=== PATIENT | male | born 1960 | race Caucasian/White ===

== ENCOUNTER 2021-05-31 20:09 | Inpatient (IN) | payer MEDICAID, SELFPAY ==
[2021-05-31] VITALS (18 sets, daily range): BP systolic 82–189; BP diastolic 59–138; PULSE 87–126; RESP 15–36; TEMP 35.9; O2SAT 87–99; BMI 27.1
--- NOTE | 2021-05-31 20:11 | XRR_ITS ---
PROCEDURE INFORMATION: Exam: XR Chest Exam date and time: 05/31/2021 8:11 PM Age: 61 years old Clinical indication: Dyspnea; Additional info: SOB TECHNIQUE: Imaging protocol: XR of the chest. Views: 1 view. COMPARISON: No relevant prior studies available. FINDINGS: Lungs: There are peripheral hazy opacities in the right lower lobe and in the left mid lung. Pleural spaces: Bilateral pleural thickening. Heart/Mediastinum: The heart size is normal. Bones/joints: Unremarkable. XR/XR chest 1V portable [id number] IMPRESSION: Bilateral lower lobe hazy lung opacities. Chronicity is uncertain but could indicate pneumonitis as well as chronic findings such as pleural thickening or scarring
--- NOTE | 2021-05-31 20:12 | ECG_ITS ---
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 Measurements Intervals [place] Rate: 126 P: 71 MI: 169 QRS: -25 QRSD: 93 T: 73 QT: 304 QTc: 440 Interpretive Statements SINUS TACHYCARDIA WITH OCCASIONAL ECTOPIC PREMATURE COMPLEXES SEPTAL MYOCARDIAL INFARCTION , PROBABLY OLD [40+ ms Q WAVE IN V1/V2] No previous ECG available for comparison Electronically Signed On 06-01-2021 12:06:54 CORRECTIONAL OFFICER CHIEF by Carolyn Caraballo M.D. [email or web address]
[2021-05-31 20:35] LABS: Basophils # 0.2 10^3/uL (0.0-0.1); Basophils % 1.1 %; Eosinophils # 1.5 10^3/uL (0.0-0.8); Eosinophils % 9.7 %; Hematocrit 47.6 % (42.0-52.0); Hemoglobin 15.5 g/dL (11.7-16.6); Lymphocytes # 2.8 10^3/uL (0.8-4.8); Lymphocytes % 17.7 %; Mean Corpuscular HGB Conc 32.6 g/dL (30.0-36.0); Mean Corpuscular Volume 101.3 fl (80-94); Mean Platelet Volume 11.1 fL (7.4-10.4); Monocytes # 1.2 10^3/uL (0.2-0.9); Monocytes % 7.8 %; Neutrophils # 9.85 10^3/uL (1.8-7.7); Neutrophils % 62.8 %; Nucleated Red Blood Cells % 0 %; Platelet Count 240 10^3/cmm (130-400); Red Cell Distribution Width 12.9 % (12.1-15.1); White Blood Count 15.7 10^3/uL (4.0-10.0)
[2021-05-31] MEDS: ipratropium-albuterol 3 mL Neb INHALATION (20:36)
[2021-05-31 20:41] LABS: D Dimer 0.37 ug/mIFEU (0-0.59)
[2021-05-31 20:47] LABS: Lactic Sepsis W/Reflex 0.7 mmol/L (0.5-2.2)
[2021-05-31 20:50] LABS: Troponin(5th) Baseline 6 ng/L (0-15)
[2021-05-31 20:57] LABS: NT Pro B Type Natriuretic Pept 61 pg/mL (0-125); Procalcitonin 0.05 ng/mL (0-0.5)
[2021-05-31 20:57] LABS: Influenza A by IFA Negative (Negative); Influenza B by IFA Negative (Negative)
--- NOTE | 2021-05-31 21:05 | CTR_ITS ---
PROCEDURE INFORMATION: Exam: CT Head Without Contrast Exam date and time: 05/31/2021 9:05 PM Age: 61 years old Clinical indication: Altered mental status/memory loss; Confusion or disorientation; Patient HX: Ams/confusion TECHNIQUE: Imaging protocol: Computed tomography of the head without contrast. Radiation optimization: All CT scans at this facility use at least one of these dose optimization techniques: automated exposure control; mA and/or kV adjustment per patient size (includes targeted exams where dose is matched to clinical indication); or iterative reconstruction. COMPARISON: No relevant prior studies available. RADIATION DOSE METRICS: Total DLP (mGy-cm): 904.45 FINDINGS: Brain: No CT evidence for acute ischemia, mass or hemorrhage. Cerebral ventricles: No ventriculomegaly. Paranasal sinuses: There is scattered mucosal thickening in the paranasal sinuses without fluid levels. Mastoid air cells: Visualized mastoid air cells are well aerated. Bones/joints: Unremarkable. No acute fracture. Soft tissues: Unremarkable. CT/CT head wo con* [id number] IMPRESSION: No acute intracranial findings
[2021-05-31 21:08] LABS: Albumin Level 4.2 g/dL (3.5-5.2); Alkaline Phosphatase 83 IU/L (40-130); Blood Urea Nitrogen 10 mg/dL (8-23); Calcium 9.1 mg/dL (8.5-10.5); Carbon Dioxide 24 mmol/L (22-29); Chloride 99 mmol/L (98-107); Globulin 3.2 g/dL (1.3-4.6); Glomerular Filtration Rate 137.4 mL/min (90-130); Glucose 213 mg/dL (65-115); Magnesium 2.2 mg/dL (1.7-2.3); Osmolality Calculated 289 mOsm/kg (285-295); Sodium 137 mmol/L (136-145); Total Bilirubin 0.4 mg/dL (0.15-1.2); Total Protein 7.4 g/dL (6.6-8.7)
[2021-05-31 21:19] LABS: Creatinine Clr Calc Pharmacy 149.1859
[2021-05-31 21:21] LABS: Alanine Aminotransferase 15 U/L (0-41); Aspartate Amino Transferase 31 U/L (0-40)
[2021-05-31 22:19] LABS: Adenovirus Not Detected (NOT DETECT); Chlamydia Pneumoniae Not Detected (NOT DETECT); Coronavirus 229E,HKU1,NL63,OC4 Not Detected (NOT DETECT); Human Metapneumovirus Not Detected (NOT DETECT); Human Rhinovirus/Enterovirus Not Detected (NOT DETECT); Influenza A Not Detected (NOT DETECT); Influenza A H1 Not Detected (NOT DETECT); Influenza A H1-2009 Not Detected (NOT DETECT); Influenza A H3 Not Detected (NOT DETECT); Influenza B Not Detected (NOT DETECT); Mycoplasma Pneumoniae Not Detected (NOT DETECT); Parainfluenza Virus Type 1 Not Detected (NOT DETECT); Parainfluenza Virus Type 2 Not Detected (NOT DETECT); Parainfluenza Virus Type 3 Not Detected (NOT DETECT); Parainfluenza Virus Type 4 Not Detected (NOT DETECT); Respiratory Syncytial Virus A Not Detected (NOT DETECT); Respiratory Syncytial Virus B Not Detected (NOT DETECT); SARS-COV-2 Not Detected (NOT DETECT)
[2021-05-31] MEDS: piperacillin-tazobactam 4.5 GM in sodium chloride 0.9% (plus) 50 ML IV (22:27)
[2021-05-31] MEDS: sodium chloride 0.9% 1,000 ML 999 ML IV ×2 (22:28→23:18)
[2021-05-31] MEDS: vancomycin 1,500 MG/300 ML PIGGYBACK 200 MG IV (23:16)
[2021-05-31 23:22] LABS: ABG PCO2 46.5 mmHg (35-45); ABG PH Result 7.38 (7.35-7.45); Arterial Blood Gas Hematocrit 43.9 % (42-52); Base Excess ABG 1.4 mmol/L (-2.0-2.0); Blood Gas Allen Test Pos; Blood Gas Sample Site Radial, right; Blood Gas Sample Type Arterial; HCO3 ABG 27.2 mmol/L (22-26); Oxygen Device BIPAP
[2021-05-31 23:24] LABS: Troponin 5 2HR 123.9 ng/L (0-15); Troponin 5 2HR Delta 117.9 ABS# (0-10)
--- NOTE | 2021-05-31 23:30 | W.ED.SOB ---
HPI - SOB/Dyspnea General: Chief Complaint: Shortness of Breath/Dyspnea Stated Complaint: RESP. DISTRESS Time Seen by Provider: 05/31/21 20:10 Source: patient and EMS History of Present Illness: HPI Narrative: 61-year-old male who called EMS with shortness of breath this evening. Patient became unresponsive on transport to the hospital. He was having trouble breathing prior. History is not reliable from patient as to prior events. He denies significant chest pain or cough. He does have a history of COPD. MD elicited complaint: shortness of breath Pertinent past history: COPD Onset (ago): hour(s) Context: other Timing: constant and progressively worsening Severity: severe Exacerbating factors: other Relieving factors: nothing Known history of: COPD Associated symptoms: Reports cough; Deny chest pain, fever(s) or vomiting Review of Systems General: Reports: ROS unobtainable due to mental status Const: Denies: fever(s) Card: Denies: chest pain GI: Denies: vomiting PFSH ED PFSH: Social History Smoking and tobacco status: former smoker Quit status (tobacco): has quit using tobacco Year quit tobacco: 2006 Former quit date comment: 2ppd x 35 years Physical Exam Const: GENERAL APPEARANCE: in distress, lethargic and ill appearing ORIENTATION/CONSCIOUSNESS: Yes lethargic HENMT: COMMON NORMALS: normocephalic, atraumatic and Normal external nose present HEAD & SCALP: normocephalic and atraumatic FACE & SINUS: normal facial exam and face symmetric NOSE: Normal external nose present Eye: COMMON NORMALS: Equal, round and reactive pupils present and EOMs intact bilaterally PUPIL: Yes Equal, round and reactive pupils present Chest: COMMONS NORMALS: normal inspection of the chest Resp: EFFORT & INSPECTION: Yes respiratory distress, Yes labored, Yes retractions and Yes uses accessory muscles AUSCULTATION: rhonchi and wheezes Cardio: COMMON NORMALS: regular rhythm RATE: tachycardic RHYTHM: regular rhythm GI: COMMON NORMALS: Normal to inspection, nondistended, normoactive bowel sounds present and Soft to palpation PALPATION: Yes Soft to palpation Extremity: COMMON NORMALS: no pedal edema Neuro: ISABEL COMA SCALE: document GCS findings [place] coma scale eye opening: To sound [place] coma scale verbal response: Confused Isabel coma scale motor response: Obey commands [place] coma scale total score: 13 SENSORIUM/ORIENTATION: Yes lethargic Course Consultations: Consultation #1: dany Time: 00:05 Vital Signs: Vital signs: Vital Signs Temperature 96.7 F L 05/31/21 20:13 Pulse Rate 89 05/31/21 22:30 Respiratory Rate 15 05/31/21 22:30 Blood Pressure 112/76 05/31/21 22:30 Pulse Oximetry 98 05/31/21 22:30 MDM - SOB/Dyspnea Medical Decision Making 61-year-old male, presents lethargic, significantly hypoxic, with wheezes. Assumed he is hypercapnic as well. He is answering some questions. He is able to follow commands. BiPAP placed on arrival. Initial pH was 7.2 with a high PCO2. Blood gas 2.5 to 3 hours later shows a pH of 7.37. His mental status has improved. CT of the head shows nothing acute. White blood cell count is 15.7. Bilateral infiltrates on chest x-ray. COVID-19 is negative by PCR. He is given a 2 L bolus, for mild transient hypotension, but is now nontachycardic and with a normal blood pressure of 118/73. The patient's mean arterial pressure never dropped below 65. He is started on Zosyn and vancomycin in the ER. Patient's delta significant over 100. Likely from hypoxic respiratory failure and ischemic demand. Nevertheless, patient is given Plavix and enoxaparin. He has a naproxen allergy, so aspirin was held. Spoke with hospitalist he will admit. Lab Data : 05/31/21 20:04 05/31/21 20:04 Labs/Radiology: Radiology Impressions Chest X-Ray 05/31/21 20:11 IMPRESSION: Bilateral lower lobe hazy lung opacities. Chronicity is uncertain but could indicate pneumonitis as well as chronic findings such as pleural thickening or scarring Head CT 05/31/21 21:05 IMPRESSION: No acute intracranial findings Laboratory Results WBC 15.7 10^3/uL (4.0-10.0) H 05/31/21 20:04 RBC 4.70 10^6/uL (4.1-5.3) 05/31/21 20:04 Hgb 15.5 g/dL (11.7-16.6) 05/31/21 20:04 Hct 47.6 % (42.0-52.0) 05/31/21 20:04 MCV 101.3 fl (80-94) H 05/31/21 20:04 MCH 33.0 pg (28.0-34.0) 05/31/21 20:04 MCHC 32.6 g/dL (30.0-36.0) 05/31/21 20:04 RDW 12.9 % (12.1-15.1) 05/31/21 20:04 Plt Count 240 10^3/cmm (130-400) 05/31/21 20:04 MPV 11.1 fL (7.4-10.4) H 05/31/21 20:04 Neut % (Auto) 62.8 % 05/31/21 20:04 Lymph % (Auto) 17.7 % 05/31/21 20:04 [place] % (Auto) 7.8 % 05/31/21 20:04 Eos % (Auto) 9.7 % 05/31/21 20:04 Baso % (Auto) 1.1 % 05/31/21 20:04 Neut # (Auto) 9.85 10^3/uL (1.8-7.7) H 05/31/21 20:04 Lymph # (Auto) 2.8 10^3/uL (0.8-4.8) 05/31/21 20:04 [place] # (Auto) 1.2 10^3/uL (0.2-0.9) H 05/31/21 20:04 Eos # (Auto) 1.5 10^3/uL (0.0-0.8) H 05/31/21 20:04 Baso # (Auto) 0.2 10^3/uL (0.0-0.1) H 05/31/21 20:04 Nucleated RBC % (auto) 0 % 05/31/21 20:04 Nucleated RBCs # 0.0 /100WBC 05/31/21 20:04 D-Dimer 0.37 ug/mIFEU (0-0.59) 05/31/21 20:04 Specimen Type Arterial 05/31/21 23:02 Sample Site Radial, right 05/31/21 23:02 ABG pH 7.38 (7.35-7.45) 05/31/21 23:02 ABG pCO2 46.5 mmHg (35-45) H 05/31/21 23:02 ABG pO2 132.0 mmHg (80.0-100.0) H 05/31/21 23:02 ABG HCO3 27.2 mmol/L (22-26) H 05/31/21 23:02 ABG Base Excess 1.4 mmol/L (-2.0-2.0) 05/31/21 23:02 David Test Pos 05/31/21 23:02 Hematocrit 43.9 % (42-52) 05/31/21 23:02 O2 Delivery Device Bipap 05/31/21 23:02 FiO2 40.0 % 05/31/21 23:02 PEEP 6.0 cmH20 05/31/21 23:02 Correspondence Dictator ID Hensa 05/31/21 23:02 Sodium 137 mmol/L (136-145) 05/31/21 20:04 Potassium 5.0 mmol/L (3.5-5.1) 05/31/21 20:04 Chloride 99 mmol/L (98-107) 05/31/21 20:04 Carbon Dioxide 24 mmol/L (22-29) 05/31/21 20:04 Anion Gap 19.0 (5-19) 05/31/21 20:04 BUN 10 mg/dL (8-23) 05/31/21 20:04 Creatinine 0.6 mg/dL (0.7-1.2) L 05/31/21 20:04 GFR Calculation 137.4 mL/min (90-130) H 05/31/21 20:04 Glucose 213 mg/dL (65-115) H 05/31/21 20:04 Calculated Osmolality 289 mOsm/kg (285-295) 05/31/21 20:04 Lactic Acid 0.7 mmol/L (0.5-2.2) 05/31/21 20:04 Calcium 9.1 mg/dL (8.5-10.5) 05/31/21 20:04 Magnesium 2.2 mg/dL (1.7-2.3) 05/31/21 20:04 Total Bilirubin 0.4 mg/dL (0.15-1.2) 05/31/21 20:04 AST 31 U/L (0-40) 05/31/21 20:04 ALT 15 U/L (0-41) 05/31/21 20:04 Alkaline Phosphatase 83 IU/L (40-130) 05/31/21 20:04 Troponin T Baseline 6 ng/L (0-15) 05/31/21 20:04 Troponin T 120 Minute 123.9 ng/L (0-15) H 05/31/21 22:20 Delta Troponin T 117.9 ABS# (0-10) H* 05/31/21 22:20 C-Reactive Protein 9.0 mg/L (0.0-4.9) H 05/31/21 20:04 NT-Pro-B Natriuret Pep 61 pg/mL (0-125) 05/31/21 20:04 Total Protein 7.4 g/dL (6.6-8.7) 05/31/21 20:04 Albumin 4.2 g/dL (3.5-5.2) 05/31/21 20:04 Globulin 3.2 g/dL (1.3-4.6) 05/31/21 20:04 Procalcitonin 0.05 ng/mL (0-0.5) 05/31/21 20:04 Coronavirus 229E (PCR) Not detected (NOT DETECT) 05/31/21 20:24 Influenza Type A Ag Negative (Negative) 05/31/21 20:24 Influenza Type B Ag Negative (Negative) 05/31/21 20:24 SARS-CoV-2 (PCR) Not detected (NOT DETECT) 05/31/21 20:24 Critical Care Time Critical Care Time: Critical Care Time: Yes Total Critical Care Time: 40 Attestation: This case had a high probability of a clinically significant, sudden, or life threatening deterioration of this patient's condition which required my full and direct attention, intervention and personal management. This is independent of any procedures performed Discharge Plan Discharge Patient Disposition: Admitted As Inpatient Clinical Impression: Community acquired pneumonia, Non-STEMI (non-ST elevated myocardial infarction), Respiratory failure Condition: Serious Coding Level of Care Code ED Cardroom Plastic Card Grader for Clementina Fwanna Exam Comprehensive
[2021-06-01] VITALS (29 sets, daily range): BP systolic 98–133; BP diastolic 67–93; PULSE 15–106; RESP 14–88; TEMP 36.4–36.6; O2SAT 87–97; BMI 27.1
[2021-06-01] MEDS: enoxaparin 100 mg/mL Syringe 90 MG SUBCUT ×3 (00:19→18:18)
[2021-06-01] MEDS: clopidogrel 300 mg Tablet PO (00:19)
--- NOTE | 2021-06-01 00:27 | P.HP_ITS ---
Providers/Chief Complaint Admitting Physician: Meg Glaser DO Primary Care Provider: SKYLAR Shipman Chief Complaint: RESP. DISTRESS History of Present Illness The patient is a 7-year-old male who presents with chief complaint of one-week history of worsening dyspnea. I was notified by the emergency department physician that the patient actually presented to the emergency department obtunded. Aside from dyspnea, the patient admits to cough which is productive white sputum. He denies fever, rigors, nausea, vomiting, wheeze, abdominal pain, diarrhea, myalgia, chest pain, lightheaded, dizziness, diaphoresis, palpitations, sense of rapid heartbeat, sensation of irregular heartbeat. He denies peripheral edema. He denies a no dyspnea, dysgeusia, headache. Patient has known history of COPD for which she is O2 dependent 2 L. He present for further evaluation Review of Systems General: Reports: 10 or more systems reviewed and unremarkable except in HPI and below Medications/Allergies Home Medications Medication Instructions Recorded Confirmed Last Taken Type albuterol sulfate 2.5 mg/0.5 mL 2.5 mg INHALATION Q6H PRN ea 01/15/21 01/15/21 Unknown History solution for nebulization albuterol sulfate 90 mcg/actuation 1 inh INHALATION Q4H PRN g 01/15/21 01/15/21 Unknown History aerosol inhaler fluticasone 500 mcg-salmeterol 50 1 inh INHALATION BID 01/15/21 01/15/21 Unknown History mcg/dose blistr powdr for inhalation fluticasone fur. 100 mcg-umeclid 1 inh INHALATION DAILY #60 ea 01/15/21 01/15/21 Unknown Rx 62.5 mcg-vilant 25 mcg inhalat.powder (Trelegy Ellipta) montelukast 10 mg tablet 10 mg PO DAILY 01/15/21 01/15/21 Unknown History (Singulair) paroxetine HCl 40 mg tablet 40 mg PO DAILY 01/15/21 01/15/21 Unknown History Allergies Allergy/AdvReac Type Severity Reaction Status Date / Time naproxen Allergy Unknown Unknown Verified 01/15/21 10:14 PFSH Acute PFSH: Social History Smoking and tobacco status: former smoker Quit status (tobacco): has quit using tobacco Year quit tobacco: 2006 Former quit date comment: 2ppd x 35 years Vitals/I&O/Wt Last Vital Signs Temp 96.7 F L 05/31/21 20:13 Pulse 88 06/01/21 00:15 Resp 18 06/01/21 00:15 BP 111/74 06/01/21 00:15 Pulse Ox 87 L 06/01/21 00:15 05/31/21 05/31/21 06/01/21 14:59 22:59 06:59 Intake Total 1050 / 1050 Balance 1050 / 1050 Weight last 48 hrs Weight 88.451 kg Physical Exam Const: COMMON NORMALS: no acute distress, average body habitus, patient oriented x3, no limitations, healthy appearing, alert and well nourished HENMT: COMMON NORMALS: normocephalic, atraumatic, hearing grossly normal bilaterally, external ears normal, EAC's normal, TM's normal bilaterally, Normal external nose present, Normal nasal mucous membranes and turbinates present, moist oral mucous membranes, oropharynx normal, dentition normal and gingiva normal HEAD & SCALP: normal to inspection FACE & SINUS: normal facial exam NOSE: Normal external nose present EXTERNAL EAR: Yes external ears normal Eye: COMMON NORMALS: Equal, round and reactive pupils present, EOMs intact bilaterally, conjunctivae normal, no scleral icterus, no papilledema, normal visual griggs by confrontation and fundi normal bilaterally GENERAL EYE: appearance normal, both eyes and all related structures ALIGNMENT: Yes alignment normal EYELID: eyelids normal CONJUNCTIVA: Yes conjunctivae normal SCLERA: sclerae normal PUPIL: Yes Equal, round and reactive pupils present EOM: Yes EOM abnormal Neck/C-Spine: COMMON NORMALS: full ROM, no lymphadenopathy, supple, no meningeal signs, no JVD, Thyroid normal and No carotid bruits THYROID: Thyroid normal CERVICAL SPINE: Yes cervical ROM normal Lymph: LYMPHATIC: no lymphadenopathy noted Chest: COMMONS NORMALS: normal inspection of the chest, normal palpation of entire chest wall, normal inspection of the breasts and normal palpation of the breasts Resp: COMMON NORMALS: normal respiratory effort, No retractions, No use of accessory muscles, clear to auscultation bilaterally and percussion normal AUSCULTATION: clear to auscultation bilaterally Cardio: COMMON NORMALS: no JVD, regular rate, regular rhythm, S1 normal heart sound present, S2 normal heart sound present, No gallops present (Cardio), No clicks present (Cardio), No murmurs present (Cardio), No rub (Cardio) and Peripheral pulses 2+ throughout JUGULAR VENOUS DISTENTION: no JVD PALPATION: normal PMI RATE: regular rate RHYTHM: regular rhythm HEART SOUNDS: S1 normal heart sound present GI: COMMON NORMALS: Normal to inspection, nondistended, normoactive bowel sounds present, Soft to palpation, non-tender, No hepatosplenomegaly present, no masses and no bruits INSPECTION: Yes normal to inspection PERCUSSION: normal to percussion : COMMON NORMALS: Yes no CVA tenderness, Yes normal external exam, Yes Testes normal, Yes scrotum normal, Yes no scrotal swelling and Yes No hernias present Back/Pelvis: COMMON NORMALS: no CVA tenderness, thoracic and lumbar spine normal to inspection, no thoracic nor lumbar tenderness, thoraco-lumbar ROM normal and straight leg raise negative bilaterally Extremity: COMMON NORMALS: normal to inspection, full ROM, capillary refill normal, no joint enlargement, no clubbing, cyanosis or edema, no calf tenderness and no pedal edema GENERAL: Yes normal exam except as noted Neuro: COMMON NORMALS: patient oriented x3, CN's II-XII intact bilaterally, moves all extremities, no focal motor deficits, no sensory deficits noted, deep tendon reflexes 2+ bilaterally and gait normal CRANIAL NERVES: Yes CN normal except as noted MOTOR EXAM: 5/5 motor strength present throughout DEEP TENDON REFLEXES: Right triceps reflex intensity grade: 2+, Left triceps reflex intensity grade: 2+, Rt Biceps (C5, C6): 2+, Left biceps reflex intensity grade: 2+, Right brachioradialis reflex intensity grade: 2+, Left brachioradialis reflex intensity grade: 2+, Right patellar reflex intensity grade: 2+, Left patellar reflex intensity grade: 2+, Right ankle reflex intensity grade: 2+ and Left ankle reflex intensity grade: 2+ PUPIL EXAM: Normal pupillary reactivity/response: bilateral, Dilated: bilateral, Pinpoint: bilateral, Mid position: bilateral, Sluggish: bilateral and Fixed/non-reactive: bilateral Psych: COMMON NORMALS: mental status grossly normal, Normal thought process present, cooperative, normal affect, speech normal, activity/motor behavior normal, denies hallucinations, denies homicidal ideation and denies suicidal ideation Skin: COMMON NORMALS: no rashes or lesions noted, no wounds, turgor normal, no jaundice, no petechiae and no mottling LESIONS: no lesions Data : 05/31/21 20:04 05/31/21 20:04 Micro: Microbiology 05/31/21 20:24 Blood Culture - Preliminary Blood SPECIMEN COLLECTED 05/31/21 20:04 Blood Culture - Preliminary Blood SPECIMEN COLLECTED A&P Assessment and plan (1) Community acquired pneumonia: Status: Acute Plan COPD exacerbation. Patient typically O2 dependent 2 L. DuoNeb every 4 hours + Medrol 6 mg IV every hours plus singular 10 Mill grams by mouth daily Pneumonia. Blood culture ?2 pending. Is at the mycin 500 Mill grams IV daily plus Rocephin 1 g IV daily plus DuoNeb every 4 hours. Will attempt to wean the patient off of BiPAP Marijuana abuse. The patient becomes regarding marijuana cessation Elevated troponin, query and STEMI. Likely due to cardiac strain from hypoxemia. Will monitor patient on telemetry and checks her cardiac enzymes. Recheck EKG at 6 AM on June 01, 2021. Aspirin 81 Mill grams by mouth daily plus Nitropaste 1/2 inch every 6 hours plus metoprolol 12.5 Mill grams by mouth twice a day plus Lipitor 40 Mill grams by mouth daily at bedtime plus Lovenox 90 Mill grams subcutaneous leak every 12 hours. If we do not see a plateau, we may consider further cardiac testing including echocardiogram and Lexiscan especially given his history of coronary artery disease, status post [place] Psoriatic arthritis Anxiety Macrocytosis. Currently pending: TSH, free T4, B12, folate levels Depression Coronary artery disease, status post WI. Aspirin 81 Mill grams by mouth daily plus Lipitor 40 Mill grams by mouth daily at bedtime plus metoprolol 12.5 Mill grams by mouth twice a day GI prophylaxis. Protonix 40 Mill grams by mouth daily DVT Proflex is. Lovenox 90 Mill grams subcu tensely every 12 hours Attestations Medical Necessity Statement*: The patient's hospitalization is medically necessary as witnessed by performance of this H&P. Anticipate hospitalization greater than 48 hours Coding Level of Care Code Acute Supervisor Continuous Weld Pipe Mill for Clementina Tim Diagnoses Community acquired pneumonia J18.9
[2021-06-01 01:25] LABS: Thyroid Stimulating Hormone 2.17 uIU/mL (0.27-4.20); Vitamin B12 467 pg/mL (232-1245)
[2021-06-01] MEDS: nitroglycerin 1 gm/inch oint Pkt 0.5 INCH TOPICAL ×2 (01:32→05:57)
[2021-06-01] MEDS: cefTRIAXone 1,000 MG in sodium chloride 0.9% (plus) 50 ML 100 MG IV ×2 (01:33→23:45)
[2021-06-01] MEDS: azithromycin 500 MG in sodium chloride 0.9% 250 ML 250 MG IV ×2 (01:33→22:48)
--- NOTE | 2021-06-01 01:38 | PC.NURSE ---
Admit Note Patient admitted to CSU room 102 from ED via stretcher. Covering service notified. Patient presents with increased work of breathing, pneumonia, NSTEMI. Patient has bipap in place. Patient denies pain at this time. No other distress observed. Dr Glaser has placed orders. Medications administered as ordered and documented. Orders reviewed & will continue to monitor. Patient and/or national account representative oriented to environment, equipment, and informed of the following as found in the admission booklet: patient rights & responsibilities, visitor policy, hand and respiratory hygiene practice. Other education includes: Zithromax, Rocephin and Solumedrol. Patient verbalized understanding however will require reinforcement when more awake.
--- NOTE | 2021-06-01 02:12 | ECG_ITS ---
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 Measurements Intervals [place] Rate: 91 P: 69 NE: 179 QRS: 21 QRSD: 88 T: 57 QT: 368 QTc: 455 Interpretive Statements SINUS RHYTHM LEFT ATRIAL ENLARGEMENT [-0.15mV P-WAVE IN V1/V2] SEPTAL MYOCARDIAL INFARCTION , PROBABLY OLD [40+ ms Q WAVE IN V1/V2] Compared to ECG 05/31/2021 20:04:30 Atrial abnormality now present Sinus tachycardia no longer present Myocardial infarct finding still present Electronically Signed On 06-01-2021 12:16:29 SUPERVISOR MONEY ROOM by Carolyn Caraballo M.D. [email or web address]
[2021-06-01 02:58] LABS: Free T4 Free Thyroxine 1.35 ng/dL (0.82-1.77)
[2021-06-01 03:35] LABS: Basophils % 0.2 %; Eosinophils % 0.1 %; Hematocrit 40.8 % (42.0-52.0); Hemoglobin 13.4 g/dL (11.7-16.6); Lymphocytes # 0.4 10^3/uL (0.8-4.8); Mean Corpuscular HGB Conc 32.8 g/dL (30.0-36.0); Mean Corpuscular Volume 100.5 fl (80-94); Mean Platelet Volume 9.9 fL (7.4-10.4); Monocytes # 0.1 10^3/uL (0.2-0.9); Monocytes % 0.7 %; Neutrophils # 8.42 10^3/uL (1.8-7.7); Neutrophils % 94.3 %; Nucleated Red Blood Cells % 0 %; Platelet Count 210 10^3/cmm (130-400); Red Blood Count 4.06 10^6/uL (4.1-5.3); Red Cell Distribution Width 12.9 % (12.1-15.1); White Blood Count 8.9 10^3/uL (4.0-10.0)
[2021-06-01] MEDS: ipratropium-albuterol 3 mL Neb INHALATION ×5 (04:14→23:14)
[2021-06-01 04:42] LABS: Troponin 5 6HR 121.5 ng/L (0-15); Troponin 5 6HR Delta 115.5 ng/L (0-12)
--- NOTE | 2021-06-01 06:00 | ECG_ITS ---
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 Measurements Intervals [place] Rate: 80 P: 65 W[place]: 170 QRS: 36 QRSD: 86 T: 56 QT: 385 QTc: 445 Interpretive Statements SINUS RHYTHM POSSIBLE LEFT ATRIAL ENLARGEMENT [-0.1mV P-WAVE IN V1/V2] SEPTAL MYOCARDIAL INFARCTION , PROBABLY OLD [40+ ms Q WAVE IN V1/V2] Compared to ECG 06/01/2021 02:45:34 No significant changes Electronically Signed On 06-01-2021 12:15:08 ASSISTANT ASSOCIATE PROFESSOR by Carolyn Caraballo M.D. [id number]
--- NOTE | 2021-06-01 06:11 | PC.NURSE ---
Shift Note Frequent safety and comfort rounds continue. Orders and/or nursing care completed as indicated. Patient monitored for response to intervention and treatment(s). Education provided includes Zithromax, Rocephine and NTP. Patient verbalized understanding. Patient reports feeling some better. Bipap remains in place at this time. Denies pain or needs presently. No distress observed. Will continue to monitor.
--- NOTE | 2021-06-01 08:45 | USCV_ITS ---
MelissaChris oscar Age: 61 Gender: M : 1960 Exam Date: 06/01/2021 09:43 Ordering Phys: Ramírez Covington MD Technologist: Nadege Buckner Exam Location: [facility] [place] Indication: SOB BP: 120 / 76 HR: 91 Rhythm: Sinus Technical Quality: Adequate MEASUREMENTS (Male / Female) Normal Values 2D ECHO LV Diastolic Diameter PLAX 4.3 cm 4.2 - 5.9 / 3.9 - 5.3 cm LV Systolic Diameter PLAX 2.6 cm LV Chamber Size 4.0 cm IVS Diastolic Thickness 1.6 cm 0.6 - 1.0 / 0.6 - 0.9 cm IVS Systolic Thickness 1.4 cm LVPW Diastolic Thickness 1.5 cm 0.6 - 1.0 / 0.6 - 0.9 cm LVPW Systolic Thickness 1.9 cm RV Chamber Size 3.6 cm LVOT Diameter 2.1 cm LV Ejection Fraction 2D Teich 71.0 % LV Ejection Fraction MOD 2C 54.1 % LV Ejection Fraction 2C AL 57.2 % LA Diameter 3.0 cm LA Width 2.3 cm LA Height 3.8 cm RA Width 4.2 cm RA Height 4.3 cm Aorta at Sinotubular Diameter 2.6 cm M-MODE Aortic Annulus Diameter 3.4 cm LA Ao Ratio MM 1.0 MV E Point Septal Separation 0.4 cm DOPPLER AV Peak Velocity 219.8 cm/s LVOT Peak Velocity 117.3 cm/s AV Area Cont Eq vti 2.1 cm squared AV Area Cont Eq pk 1.8 cm squared MV Area PHT 4.4 cm squared Mitral E to A Ratio 0.8 MV E' Velocity 46.5 cm/s Mitral E to MV E' Ratio 12.4 Mitral E to LV E' Lateral Ratio 12.1 Mitral E to LV E' Septal Ratio 13.0 TR Peak Velocity 142.7 cm/s TR Peak Gradient 8.1 mmHg TR Mean Velocity 91.9 cm/s TR Mean Gradient 4.0 mmHg TR Velocity Time Integral 28.0 cm TV Peak E Velocity 58.0 cm/s Right Atrial Pressure 3.0 mmHg Pulmonary Artery Systolic Pressu 11.1 mmHg PV Peak Velocity 127.0 cm/s RV Acceleration Time 0.1 s RV Ejection Time 0.3 s RV AcT/ET 0.4 FINDINGS Left Ventricle Normal left ventricular size, systolic function with no regional wall motion abnormalities. Left ventricular ejection fraction is estimated at 65 %. Grade I diastolic dysfunction (abnormal relaxation filling pattern), normal to mildly elevated filling pressures. Right Ventricle Normal right ventricular size and systolic function. Right ventricular systolic pressure 11.1 mmHg. Right Atrium Normal right atrial size. Right atrial pressure estimated at 3 mm Hg. Left Atrium Normal left atrial size. Mitral Valve Mildly thickened mitral valve. No mitral valve stenosis. Trace mitral valve regurgitation. Aortic Valve Aortic valve not well visualized. Thickened and calcified aortic valve (more pronounced in noncoronary cusp). Sclerotic aortic valve. No significant aortic valve stenosis. No aortic valve regurgitation. Tricuspid Valve Structurally normal tricuspid valve. No tricuspid valve stenosis. Trace tricuspid valve regurgitation. Pulmonic Valve Pulmonic valve not well visualized. No pulmonary valve stenosis. No significant pulmonary valve regurgitation. Pericardium No pericardial effusion. Aorta Normal size aortic root. Normal-sized inferior vena cava with normal respiratory variation. CONCLUSIONS 1. Normal left ventricular size, systolic function with no regional wall motion abnormalities. Left ventricular ejection fraction is estimated at 65 %. Grade I diastolic dysfunction (abnormal relaxation filling pattern), normal to mildly elevated filling pressures. 2. Normal right ventricular size and systolic function. 3. Sclerotic aortic valve. No significant aortic valve stenosis. 4. No prior similar studies to compare. Carolyn Caraballo MD (Electronically Signed) Final Date: 01 June 2021 12:44 S
--- NOTE | 2021-06-01 08:48 | PM.PN ---
Subjective Subjective: Patient was seen and examined this morning, complaining of worsening shortness of breath since Wednesday With nonproductive cough, has remained afebrile overnight, saturating well on room air. His other vitals and labs have been reviewed. Medications: Medication Review Details: Generic Name Dose Route Start Last Admin Trade Name Mira PRN Reason Stop Dose Admin Albuterol/Ipratrop ium 3 ml 06/01/21 04:00 06/01/21 07:27 Ipratropium-Albu terol 3 Ml Neb INHALATION 3 ml Q4H.RESPIRATORY S CH Administration Azithromycin 500 m g/ Sodium 250 mls @ 250 mls /hr 06/01/21 00:33 06/01/21 02:33 Chloride IV Infused Q24H MARTY Infusion Protocol Ceftriaxone Sodium 1,000 mg/ 50 mls @ 100 mls/ hr 06/01/21 00:33 06/01/21 01:59 Sodium Chloride IV Infused Q24H MARTY Infusion Protocol Methylprednisolone Sodium Succinate 60 mg 06/01/21 00:33 06/01/21 01:33 Methylprednisolo ne Sod Succ 125 Mg /2 Ml Inj IVP 60 mg Q8H MARTY Administration Nitroglycerin 0.5 inch 06/01/21 00:33 06/01/21 05:57 Nitroglycerin 1 Gm/Inch Oint Pkt TOPICAL 0.5 inch Q6H MARTY Administration Vitals/I&O/Wt Last Vital Signs Temp 96.7 F L 05/31/21 20:13 Pulse 103 H 06/01/21 07:40 Resp 16 06/01/21 07:40 BP 120/76 06/01/21 04:19 Pulse Ox 97 06/01/21 07:40 05/31/21 06/01/21 06/01/21 22:59 06:59 14:59 Intake Total 2650 / 2650 218 / 218 Output Total 300 / 300 400 / 400 Balance 2350 / 2350 -182 / -182 Weight last 48 hrs Weight 88.042 kg Weight 88.451 kg Physical Exam Const: COMMON NORMALS: patient oriented x3 HENMT: COMMON NORMALS: normocephalic and atraumatic HEAD & SCALP: normocephalic and atraumatic Chest: CHEST: Yes Symmetrical chest wall rise Resp: COMMON NORMALS: normal respiratory effort EFFORT & INSPECTION: Yes symmetric chest movement Cardio: COMMON NORMALS: regular rate, regular rhythm, S1 normal heart sound present, S2 normal heart sound present, No gallops present (Cardio), No murmurs present (Cardio), No rub (Cardio) and Peripheral pulses 2+ throughout RATE: regular rate RHYTHM: regular rhythm HEART SOUNDS: S1 normal heart sound present and S2 normal heart sound present PERIPHERAL PULSES: Peripheral pulses 2+ throughout GI: COMMON NORMALS: Normal to inspection, nondistended, normoactive bowel sounds present, Soft to palpation, non-tender, No hepatosplenomegaly present and no masses AUSCULTATION: Yes normoactive bowel sounds PALPATION: Yes Soft to palpation and Yes No hepatosplenomegaly present RECTAL EXAM: Yes deferred Extremity: COMMON NORMALS: no clubbing, cyanosis or edema and no pedal edema Neuro: COMMON NORMALS: patient oriented x3 Data : 06/01/21 02:40 05/31/21 20:04 Micro: Microbiology 05/31/21 20:24 Blood Culture - Preliminary Blood SPECIMEN COLLECTED 05/31/21 20:04 Blood Culture - Preliminary Blood SPECIMEN COLLECTED A&P Assessment and plan (1) Community acquired pneumonia: Status: Acute Plan 61-year-old male with past medical history of COPD on 2 L home oxygen, past smoker smoked 2 pack/day for 35 years, quit smoking IN 2006, current tobacco chewer , was brought in with chief complaint of worsening shortness of breath With nonproductive cough, started this Wednesday and has since then progressively worsened, Patient has recently been treated for pneumonia as an outpatient on oral antibiotics, post treatment he was doing fine since Wednesday he again started having shortness of breath which has progressively worsened. #NSTEMI cannot conclusively rule out type I, Given the fact that the patient is a former smoker Could be possible type II, secondary to pneumonia /COPD exacerbation . 2D echo: Normal LV size and systolic function, with no RWMA , LVEF 65%, grade 1 diastolic dysfunction Normal RV size and systolic function. EKG: SR , with possible left atrial enlargement D-dimer 0.37 Currently patient is on aspirin , statin, therapeutic anticoagulation , low-dose beta-amanda. Sublingual nitro as needed. Cardiology consult. For Possible stress test COPD exacerbation. Admission ABG: pH 7.38 PCO2 46 PO2 132 FiO2 40%:40% Monitor x-ray chest And ABG Solu-Medrol 60 IV twice daily DuoNeb every 4 hours Incentive spirometry , flutter valve Supplemental oxygen as needed Pneumonia. Procalcitonin: Normal Follow blood culture. Urine Legionella antigen Bacterial antigen panel Sputum Gram stain and culture Currently on ceftriaxone and azithromycin Marijuana abuse. The patient becomes regarding marijuana cessation Psoriatic arthritis GI prophylaxis. Protonix DVT Proflex is. Lovenox Attestations Medical Necessity Statement*: Patient is still in hospital for management of NSTEMI. Time Spent in Patient Care: Greater than 35 minutes (>than 50% of time spent in counselling and/or direct pt care on unit). 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
[2021-06-01] MEDS: aspirin 81 mg EC Tablet PO (09:35)
[2021-06-01] MEDS: pantoprazole DR 40 mg Tablet PO (09:35)
[2021-06-01] MEDS: montelukast sodium 10 mg Tablet PO (09:42)
[2021-06-01] MEDS: metoprolol tartrate 25 mg Tablet 12.5 MG PO ×2 (09:43→19:39)
[2021-06-01 11:37] LABS: Folate Level 12.6 ng/mL (4.5-32.2)
--- NOTE | 2021-06-01 12:51 | PM.CONSULT ---
Providers/Reason For Consult Consulting Physician/Specialty*: Dr. Caraballo, cardiology Reason for Consult*: Shortness of breath, elevated troponin Attending Physician: Ramírez Covington MD Primary Care Provider: SKYLAR Shipman History of Present Illness History of Present Illness Chris Torres is a 61 year old male who is former heavy smoker, current tobacco chewer [facility] He presented with SOB progressively worsening for 1 day. No chest pain. He was hospitalized last week at different hospital for PNA. No ischemic EKG changes and troponin elevated on 2nd and 3rd set. No personal h/o CAD, DM-2. Review of Systems General: Reports: 10 or more systems reviewed and unremarkable except in HPI and below Const: Denies: fever(s) or chills Card: Denies: chest pain, syncope or pre-syncope GI: Denies: abdominal pain, hematochezia or melena Musc: Denies: extremity swelling Neuro: Denies: difficulty walking or dizziness Endo: Denies: tired all the time or cold intolerance Medications/Allergies Home Medications Medication Instructions Recorded Confirmed Last Taken Type albuterol sulfate 90 mcg/actuation 1 inh INHALATION Q4H PRN g 01/15/21 06/01/21 05/31/21 History aerosol inhaler fluticasone fur. 100 mcg-umeclid 1 inh INHALATION DAILY #60 ea 01/15/21 06/01/21 05/31/21 Rx 62.5 mcg-vilant 25 mcg inhalat.powder (Trelegy Ellipta) montelukast 10 mg tablet 10 mg PO DAILY 01/15/21 06/01/21 05/31/21 08:00 History (Singulair) paroxetine HCl 40 mg tablet 40 mg PO DAILY 01/15/21 06/01/21 05/31/21 08:00 History Allergies Allergy/AdvReac Type Severity Reaction Status Date / Time naproxen Allergy Unknown Unknown Verified 01/15/21 10:14 Current Medications Generic Name Dose Route Start Last Admin Trade Name Freq PRN Reason Stop Dose Admin Albuterol/Ipratropium 3 ml 06/01/21 04:00 06/01/21 12:01 Ipratropium-Albuterol 3 Ml Neb INHALATION 3 ml Q4H.RESPIRATORY MARTY Administration Aspirin 81 mg 06/01/21 09:00 06/01/21 09:35 Aspirin 81 Mg Ec Tablet PO 81 mg DAILY MARTY Administration Enoxaparin Sodium 90 mg 06/01/21 09:00 06/01/21 09:36 Enoxaparin 100 Mg/Ml Syringe SUBCUT 90 mg BID MARTY Administration Azithromycin 500 mg/ Sodium 250 mls @ 250 mls/hr 06/01/21 00:33 06/01/21 02:33 Chloride IV Infused Q24H MARTY Infusion Protocol Ceftriaxone Sodium 1,000 mg/ 50 mls @ 100 mls/hr 06/01/21 00:33 06/01/21 01:59 Sodium Chloride IV Infused Q24H MARTY Infusion Protocol Methylprednisolone Sodium Succinate 60 mg 06/01/21 00:33 06/01/21 09:34 Methylprednisolone Sod Succ 125 Mg/2 Ml Inj IVP 60 mg Q8H MARTY Administration Metoprolol Tartrate 12.5 mg 06/01/21 09:00 06/01/21 09:43 Metoprolol Tartrate 25 Mg Tablet PO 12.5 mg BID@0900,2100 MARTY Administration Montelukast Sodium 10 mg 06/01/21 09:00 06/01/21 09:42 Montelukast Sodium 10 Mg Tablet PO 10 mg DAILY MARTY Administration Nitroglycerin 0.5 inch 06/01/21 00:33 06/01/21 05:57 Nitroglycerin 1 Gm/Inch Oint Pkt TOPICAL 0.5 inch Q6H MARTY Administration Pantoprazole Sodium 40 mg 06/01/21 09:00 06/01/21 09:[address] 40 Mg Tablet PO 40 mg DAILY MARTY Administration PFSH Acute PFSH: Medical History COPD (chronic obstructive pulmonary disease) Tobacco chew use Social History Smoking and tobacco status: former smoker Quit status (tobacco): has quit using tobacco Year quit tobacco: 2006 Former quit date comment: 2ppd x 35 years Vitals/I&O/Wt Last Vital Signs Temp 96.7 F L 05/31/21 20:13 Pulse 90 06/01/21 12:10 Resp 16 06/01/21 12:10 BP 120/76 06/01/21 04:19 Pulse Ox 94 06/01/21 12:10 05/31/21 06/01/21 06/01/21 22:59 06:59 14:59 Intake Total 2650 / 2650 218 / 218 Output Total 300 / 300 400 / 400 Balance 2350 / 2350 -182 / -182 Weight last 48 hrs Weight 194 lb 1.6 oz Weight 195 lb Physical Exam Narrative: GENERAL: Averagely built and averagely nourished in no acute distress HEENT: No pallor or icterus. NECK: No JVD, No carotid bruit. CARDIOVASCULAR SYSTEM: S1-S2 regular. No murmur or gallops. RESPIRATORY SYSTEM: Chest clear to auscultation. Prolonged expiration. No wheezes or rales. No use of accessory muscles. ABDOMEN: Soft, nontender and nondistended. Normal bowel sounds present. EXTREMITIES: No cyanosis or edema. BLOCKLAYER: Patient is alert oriented ?3. No focal neurological deficits. SKIN: Normal turgor and temperature. PSYCH: Normal insight and judgment. Data : 06/01/21 02:40 05/31/21 20:04 Micro: Microbiology 05/31/21 20:24 Blood Culture - Preliminary Blood SPECIMEN COLLECTED 05/31/21 20:04 Blood Culture - Preliminary Blood SPECIMEN COLLECTED A&P Assessment and plan (1) Non-STEMI (non-ST elevated myocardial infarction): No EKG changes and no RWMA -Plan for stress test and further recommendation based on that. Status: Acute (2) Community acquired pneumonia: Status: Acute (3) Tobacco chew use: Advised on tobacco cessation. 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
--- NOTE | 2021-06-01 17:08 | ECG_ITS ---
[facility] Test Date: 2021-06-02 Pat Name: Chris Torres Department: Room: 102 Gender: Male Product Safety Administrator: Celsa Tracy : 1960 Requested By: Carolyn Caraballo Order Number: [id number] Yesica MD: Carolyn Caraballo M.D. Interpretive Statements NAME OF STUDY: LEXISCAN SESTAMIBI STRESS TEST INDICATION: Chest Pain PROCEDURE: At the baseline, the blood pressure was 120/74 mmHg with a heart rate of 70 bpm. The electrocardiogram showed sinus rhythm, normal axis. Possible old septal infarct. The Lexiscan was infused over a period of 20 seconds. A total of 0.4 milligrams of Lexiscan was infused. The stress phase was continued for a total of 5 minutes. Heart rate at the end of the stress phase was 88 bpm with a blood pressure of 116/63 mmHg. The EKG at the peak infusion revealed sinus rhythm with no significant ST-T wave changes. The study was terminated due to protocol completion. Sestamibi was injected 20 seconds after the Lexiscan infusion. Blood pressure at the end of the recovery phase was 119/69 mmHg with a heart rate of 84 beats per minute. CONCLUSION: 1. No significant EKG changes with the LexiScan infusion. 2. No LexiScan induced chest pain or cardiac arrhythmia. 3. Normal blood pressure and heart rate response. 4. Sestamibi/sestamibi perfusion scan pending; see separate report. Electronically Signed On 06-02-2021 10:01:39 TROUBLE TRACER by Carolyn Caraballo M.D. [id number]
[2021-06-01] MEDS: atorvastatin 40 mg Tablet PO (19:39)
[2021-06-02] VITALS (19 sets, daily range): BP systolic 119–147; BP diastolic 69–86; PULSE 61–84; RESP 13–23; TEMP 36.1–36.7; O2SAT 92–98
[2021-06-02 02:31] LABS: Basophils % 0.1 %; Hematocrit 38.3 % (42.0-52.0); Hemoglobin 12.7 g/dL (11.7-16.6); Lymphocytes # 1.4 10^3/uL (0.8-4.8); Mean Corpuscular HGB Conc 33.2 g/dL (30.0-36.0); Mean Corpuscular Hemoglobin 33.1 pg (28.0-34.0); Mean Corpuscular Volume 99.7 fl (80-94); Mean Platelet Volume 10.3 fL (7.4-10.4); Monocytes # 1.3 10^3/uL (0.2-0.9); Monocytes % 7.6 %; Neutrophils # 14.44 10^3/uL (1.8-7.7); Neutrophils % 83.7 %; Nucleated Red Blood Cells % 0 %; Platelet Count 225 10^3/cmm (130-400); Red Blood Count 3.84 10^6/uL (4.1-5.3); Red Cell Distribution Width 12.9 % (12.1-15.1); White Blood Count 17.3 10^3/uL (4.0-10.0)
[2021-06-02 02:51] LABS: Anion Gap 13.7 (5-19); Blood Urea Nitrogen 26 mg/dL (8-23); Calcium 8.2 mg/dL (8.5-10.5); Carbon Dioxide 25 mmol/L (22-29); Chloride 105 mmol/L (98-107); Glomerular Filtration Rate 137.4 mL/min (90-130); Glucose 130 mg/dL (65-115); Osmolality Calculated 295 mOsm/kg (285-295); Potassium 4.7 mmol/L (3.5-5.1); Sodium 139 mmol/L (136-145)
[2021-06-02] MEDS: ipratropium-albuterol 3 mL Neb INHALATION ×4 (03:01→22:52)
--- NOTE | 2021-06-02 07:00 | NMCV_ITS ---
NM vira perf SPECT r/s* [id number] Chris Torres Age: 61 Gender: M : 1960 Exam Date: 06/02/2021 07:00 Ordering Phys: Carolyn Caraballo MD ([email or web address]) Technologist: MAGGY Salas Exam Location: [facility] Indications: CHEST PAIN STRESS TEST [facility] IMAGE PROTOCOL Rest/Stress 1 Lexiscan Day Radiopharmaceutical Dose (mCi) Administration Site Administered by Rest: Tc-99m 10.9 IV MAGGY Mendoza Sestamibi Stress:Tc-99m 32.4 IV MAGGY Mendoza Sestamibi Rest: 02-Jun-2021 60 Discovery 630 Stress: 02-Jun-2021 30 Discovery 630 0.4mg Lexiscan. Images obtained in supine and prone position. SPECT RESULTS Technical Quality: Excellent Raw Data Analysis: Normal Image Corrections: No attenuation or motion correction applied Summed Stress Score: 3 Summed Rest Score: 0 Summed Difference Score: 3 PERFUSION FINDINGS Small sized perfusion abnormality of mild severity of apical inferior wall on rest images with reversibility in apical inferior and apical lateral goins on stress images. FUNCTIONAL RESULTS (calculated via Gated SPECT) Stress Image LV EF (%): 68 Stress EDV (mL):139 TID: 0.85 Stress ESV (mL):45 FUNCTIONAL FINDINGS: The left ventricle is normal in size. Transient Ischemia Dilatation of 0.85. There is normal left ventricular systolic function. The left ventricular ejection fraction is normal with a value of 68%. There is normal left ventricular wall thickening with no regional wall motion abnormality. Normal end-diastolic and end-systolic volumes. IMPRESSIONS 1. Small sized perfusion abnormality of mild severity of apical inferior wall with reversibility in apical inferior and apical lateral goins on stress images. 2. This may represent small area of ischemia in left anterior descending/right coronary artery territory. 3. Overall left ventricular systolic function is normal without regional wall motion abnormalities, LVEF=68%. 4. No significant EKG changes with Lexiscan infusion. Refer to separate report for details. 5. No prior similar studies to compare. Carolyn Caraballo MD (Electronically Signed) Final Date: 02 June 2021 10:07 S
[2021-06-02] MEDS: regadenoson 0.4 Mg/5 ml Syringe IVP (07:22)
--- NOTE | 2021-06-02 08:45 | PC.NURSE ---
Patient stated he went several times and was not able to give a number.
--- NOTE | 2021-06-02 08:55 | XR_ITS ---
WS: [id number] PORTABLE CHEST HISTORY: Pneumonia COMPARISON: 05/31/2021 Mild interval improvement in the bilateral hazy opacifications predominantly in the mid to lower lung griggs. Small bilateral pleural effusions. No pneumothorax. Cardiac size: Normal. Mediastinum/Aorta: Normal mediastinum. No osseous abnormality seen. XR/XR chest 1V portable [id number] IMPRESSION: 1. Mild improvement in the bilateral pulmonary opacifications consistent with improving pneumonia. 2. Very small bilateral pleural effusions.
[2021-06-02] MEDS: aspirin 81 mg EC Tablet PO (09:22)
[2021-06-02] MEDS: pantoprazole DR 40 mg Tablet PO (09:23)
[2021-06-02] MEDS: predniSONE 20 mg Tablet 40 MG PO (09:23)
[2021-06-02] MEDS: montelukast sodium 10 mg Tablet PO (09:23)
[2021-06-02] MEDS: enoxaparin 100 mg/mL Syringe 90 MG SUBCUT ×2 (09:23→17:12)
[2021-06-02] MEDS: metoprolol tartrate 25 mg Tablet PO ×2 (09:24→20:52)
--- NOTE | 2021-06-02 10:02 | PC.NURSE ---
Around 0930: Orders received from Dr. Madison, Hospitalist. See MAR.
[2021-06-02 10:16] LABS: Chol HDL Ratio 2.88 mg/dL (1.0-5.00); Cholesterol 164 mg/dL (0-200); HDL Cholesterol 57 mg/dL (60-100); Iron 59 ug/dL (59-158); LDL Cholesterol Calculated 90 mg/dL (50-129); Percent Saturation 29.9 % (20-50); Total Iron Binding Capacity 197 mcg/dl; Triglycerides 87 mg/dL (0-150); Unsaturated Iron Binding 138 ug/dL (112-347); VLDL Cholestrol Calculation 17 mg/dL (0-30)
[2021-06-02 10:20] LABS: Estmated Average Glucose 97
[2021-06-02 10:23] LABS: Procalcitonin 0.39 ng/mL (0-0.5)
--- NOTE | 2021-06-02 11:01 | PC.CHAP ---
Pastoral Care Encounter/Spiritual Assessment Type of Contact [] Declined larriman helper visit [] Patient/Family/Request visit [] Outpatient visit [] Follow-up visit [] Physician referral [] Code/Alert [x] Routine visit [] Staff referral [] Actively dying [] Patient sleeping [] Family support [] [] Out of room [] Palliative care [] [] Receiving care in room [] Pre-surgical visit [] Trauma [] Long length of stay [] ICU visit [] Other: Relational/Emotional Strength [] Patient feels connected with others/family/visitors/staff [] Distress [] Loneliness/isolation [] Abandonment Spirituality of Patient [] Person of Megan [] Attends Church of their Megan [] Believes in Prayer [] Reads Bible or Scientologist materials [] There are Spiritual issues to be addressed House Principal Interventions [x] Prayer [x] Active listening [x] Non-anxious presence [x] Spiritual/emotional support [] Crisis/trauma care [] Spiritual counseling [] Bereavement support [] Provided bereavement packet [] Provided Bible/devotional materials [] Provided toy/stuffed animal, coloring book to patient or family member [] Provided Communion [] Anointing/Kent [] Salvation [x] Completed spiritual assessment [] Other: Impact on Illness or Injury [] Angry [] Fearful [] Anxious [] Often cries [] Exhaustion [] Unable to work [] Unable to attend advent [] Unable to walk/stand [] Unable to read [] Unable to drive [] Unable to eat/drink [] Unable to sleep [] Unable to be with family [] Patient intubated [] Other: Summary feeling better Time spent with patient 5 min
[2021-06-02] MEDS: PARoxetine 20 mg Tablet 40 MG PO (11:32)
--- NOTE | 2021-06-02 15:06 | PM.PN ---
Subjective Subjective: Hospital course, labs appreciated. On examination patient is on room air. Denies any nausea, vomiting, headache. Anxious. States he been having difficulty in breathing on and off for last couple of years. Even during examination his saturations remained more than 92% but states he is feeling out of breath on talking. States he stopped smoking around 14 years ago but continues to do tobacco. Vitals/I&O/Wt Last Vital Signs Temp 97.2 F L 06/02/21 08:26 Pulse 66 06/02/21 14:35 Resp 16 06/02/21 14:29 BP 138/78 06/02/21 11:38 Pulse Ox 95 06/02/21 14:29 06/02/21 06/02/21 06/02/21 06:59 14:59 22:59 Intake Total 800 / 1768 520 / 520 Output Total 400 / 2125 800 / 800 Balance 400 / -357 -280 / -280 Weight last 48 hrs Weight 88.042 kg Weight 88.451 kg Physical Exam Const: COMMON NORMALS: no acute distress, average body habitus, patient oriented x3, no limitations, healthy appearing, alert and well nourished HENMT: COMMON NORMALS: normocephalic, atraumatic, EAC's normal, TM's normal bilaterally, Normal external nose present, Normal nasal mucous membranes and turbinates present, moist oral mucous membranes, oropharynx normal, dentition normal and gingiva normal HEAD & SCALP: normal to inspection, normocephalic and atraumatic FACE & SINUS: normal facial exam NOSE: Normal external nose present and Normal nasal mucous membranes and turbinates present EXTERNAL AUDITORY CANAL: EAC's normal TYMPANIC MEMBRANE: TM's normal bilaterally Eye: COMMON NORMALS: Equal, round and reactive pupils present, EOMs intact bilaterally, conjunctivae normal, no scleral icterus, no papilledema, normal visual griggs by confrontation and fundi normal bilaterally GENERAL EYE: appearance normal, both eyes and all related structures ALIGNMENT: Yes alignment normal EYELID: eyelids normal CONJUNCTIVA: Yes conjunctivae normal SCLERA: sclerae normal PUPIL: Yes Equal, round and reactive pupils present EOM: Yes EOM abnormal DIRECT OPHTHALMOSCOPY: Yes no papilledema and Yes fundi normal bilaterally Neck/C-Spine: COMMON NORMALS: full ROM, no lymphadenopathy, supple, no meningeal signs, no JVD, Thyroid normal and No carotid bruits THYROID: Thyroid normal CERVICAL SPINE: Yes cervical ROM normal Lymph: LYMPHATIC: no lymphadenopathy noted Chest: COMMONS NORMALS: normal inspection of the chest, normal palpation of entire chest wall, normal inspection of the breasts and normal palpation of the breasts CHEST: Yes Symmetrical chest wall rise Resp: COMMON NORMALS: normal respiratory effort and percussion normal EFFORT & INSPECTION: Yes symmetric chest movement PERCUSSION: percussion normal Cardio: COMMON NORMALS: no JVD, regular rate, regular rhythm, S1 normal heart sound present, S2 normal heart sound present, No gallops present (Cardio), No clicks present (Cardio), No murmurs present (Cardio), No rub (Cardio) and Peripheral pulses 2+ throughout JUGULAR VENOUS DISTENTION: no JVD PALPATION: normal PMI RATE: regular rate RHYTHM: regular rhythm HEART SOUNDS: S1 normal heart sound present and S2 normal heart sound present PERIPHERAL PULSES: Peripheral pulses 2+ throughout GI: COMMON NORMALS: Normal to inspection, nondistended, normoactive bowel sounds present, Soft to palpation, non-tender, No hepatosplenomegaly present, no masses and no bruits INSPECTION: Yes normal to inspection AUSCULTATION: Yes normoactive bowel sounds PALPATION: Yes Soft to palpation and Yes No hepatosplenomegaly present PERCUSSION: normal to percussion RECTAL EXAM: Yes deferred : COMMON NORMALS: Yes no CVA tenderness, Yes normal external exam, Yes Testes normal, Yes scrotum normal, Yes no scrotal swelling and Yes No hernias present BLADDER/KIDNEY EXAM: Yes no CVA tenderness Back/Pelvis: COMMON NORMALS: no CVA tenderness, thoracic and lumbar spine normal to inspection, no thoracic nor lumbar tenderness, thoraco-lumbar ROM normal and straight leg raise negative bilaterally Extremity: COMMON NORMALS: normal to inspection, full ROM, capillary refill normal, no joint enlargement, no clubbing, cyanosis or edema, no calf tenderness and no pedal edema GENERAL: Yes normal exam except as noted Neuro: COMMON NORMALS: patient oriented x3, CN's II-XII intact bilaterally, moves all extremities, no focal motor deficits, no sensory deficits noted, deep tendon reflexes 2+ bilaterally and gait normal SENSORIUM/ORIENTATION: Yes alert MENINGEAL SIGNS: Yes no meningeal signs CRANIAL NERVES: Yes CN normal except as noted MOTOR EXAM: 5/5 motor strength present throughout DEEP TENDON REFLEXES: Right triceps reflex intensity grade: 2+, Left triceps reflex intensity grade: 2+, Rt Biceps (C5, C6): 2+, Left biceps reflex intensity grade: 2+, Right brachioradialis reflex intensity grade: 2+, Left brachioradialis reflex intensity grade: 2+, Right patellar reflex intensity grade: 2+, Left patellar reflex intensity grade: 2+, Right ankle reflex intensity grade: 2+ and Left ankle reflex intensity grade: 2+ PUPIL EXAM: Normal pupillary reactivity/response: bilateral, Dilated: bilateral, Pinpoint: bilateral, Mid position: bilateral, Sluggish: bilateral and Fixed/non-reactive: bilateral Psych: COMMON NORMALS: mental status grossly normal, Normal thought process present, cooperative, normal affect, speech normal, activity/motor behavior normal, denies hallucinations, denies homicidal ideation and denies suicidal ideation SPEECH: Yes normal speech THOUGHT PROCESS: Normal thought process present Skin: COMMON NORMALS: no rashes or lesions noted, no wounds, turgor normal, no jaundice, no petechiae and no mottling GENERAL SKIN EXAM: no rashes or lesions noted and turgor normal LESIONS: no lesions Data : 06/02/21 01:53 06/02/21 01:53 Micro: Microbiology 06/01/21 21:25 Gram Stain - Final Sputum - Expectorated Sputum 06/01/21 21:25 Legionella Urinary Antigen - Final Urine,Voided Bacterial Antigens - Final 05/31/21 20:24 Blood Culture - Preliminary Blood NEGATIVE TO DATE 05/31/21 20:04 Blood Culture - Preliminary Blood NEGATIVE TO DATE A&P Assessment and plan (1) Community acquired pneumonia: Status: Acute Plan 61-year-old male with past medical history of COPD on 2 L home oxygen, past smoker smoked 2 pack/day for 35 years, quit smoking IN 2006, current tobacco chewer , was brought in with chief complaint of worsening shortness of breath With nonproductive cough, started this Wednesday and has since then progressively worsened, Shortness of breath: Most likely secondary to COPD exacerbation in setting of recent pneumonia. Procalcitonin negative, urine Legionella bacterial antigen negative. Sputum culture awaited. Stop ceftriaxone and azithromycin. Continue with Levaquin to finish a 5-day course. For COPD exacerbation start on DuoNebs and budesonide. Change methylprednisolone to oral prednisone 40 mg oral daily. Will do a short course of steroid and stop rapidly. #NSTEMI cannot conclusively rule out type I, Given the fact that the patient is a former smoker Elevated troponin on admission with positive delta. Echocardiogram done during this hospitalization showed EF of 65% with grade 1 diastolic dysfunction, no regional wall motion normality. We will follow up with stress test. Depending on stress test results we will plan for possible cardiac angiogram. Appreciate cardiology recommendations. For now continue with full dose Lovenox 1 mg/kg body weight every 12 hourly. Continue with aspirin, statin. Check HbA1c, lipid panel. Restart chronic medications including paroxetine. Psoriatic arthritis GI prophylaxis. Protonix DVT Proflex is. Lovenox Attestations Medical Necessity Statement*: No shortness of breath secondary to COPD exacerbation in setting of recent pneumonia, and non-ST elevation OR Time Spent in Patient Care: Greater than 35 minutes Coding Level of Care Code Acute Health Program Analyst for Clementina Tim Diagnoses Community acquired pneumonia J18.9
--- NOTE | 2021-06-02 16:20 | P.PN_ITS ---
Subjective Subjective: Patient feels better. He was able to walk down the halls without any chest discomfort. Continues to have productive and nonproductive cough Medications: Reviewed: Yes Vitals/I&O/Wt Last Vital Signs Temp 97.2 F L 06/02/21 08:26 Pulse 66 06/02/21 14:35 Resp 16 06/02/21 14:29 BP 138/78 06/02/21 11:38 Pulse Ox 95 06/02/21 14:29 06/02/21 06/02/21 06/02/21 06:59 14:59 22:59 Intake Total 800 / 1768 520 / 520 Output Total 400 / 2125 800 / 800 Balance 400 / -357 -280 / -280 Weight last 48 hrs Weight 194 lb 1.6 oz Weight 195 lb Physical Exam Narrative: GENERAL: Averagely built and averagely nourished in no acute distress HEENT: No pallor or icterus. NECK: No JVD, No carotid bruit. CARDIOVASCULAR SYSTEM: S1-S2 regular. No murmur or gallops. RESPIRATORY SYSTEM: Chest clear to auscultation. Prolonged expiration. No wheezes or rales. No use of accessory muscles. ABDOMEN: Soft, nontender and nondistended. Normal bowel sounds present. EXTREMITIES: No cyanosis or edema. 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 No focal neurological deficits. SKIN: Normal turgor and temperature. PSYCH: Normal insight and judgment. Data : 06/02/21 01:53 06/02/21 01:53 Micro: Microbiology 06/01/21 21:25 Gram Stain - Final Sputum - Expectorated Sputum 06/01/21 21:25 Legionella Urinary Antigen - Final Urine,Voided Bacterial Antigens - Final 05/31/21 20:24 Blood Culture - Preliminary Blood NEGATIVE TO DATE 05/31/21 20:04 Blood Culture - Preliminary Blood NEGATIVE TO DATE A&P Assessment and plan (1) Non-STEMI (non-ST elevated myocardial infarction): No EKG changes and no RWMA -Mildly abnormal stress test. -CAD risk factor of tobacco abuse. -Continue aspirin statin and low-dose metoprolol on discharge. -Nitroglycerin sublingual as needed -Follow-up in 2 weeks at [facility]. Status: Acute (2) Community acquired pneumonia: On antibiotics as per primary team Status: Acute (3) Tobacco chew use: Advised on tobacco cessation. 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
[2021-06-02] MEDS: levoFLOXacin 500 mg Tablet PO (17:12)
--- NOTE | 2021-06-02 19:30 | PC.NURSE ---
Pt presents sitting up in bed talking to staff. Pt resp even and non-labored no distress noted. Pt had no c/o pain or discomfort at the present time. Call light in reach. No needs voiced at the present time. Will cont to monitor.
[2021-06-02] MEDS: atorvastatin 40 mg Tablet PO (20:52)
[2021-06-03] VITALS (9 sets, daily range): BP systolic 130–150; BP diastolic 76–91; PULSE 57–99; RESP 16–19; TEMP 36.4–36.7; O2SAT 96–99
[2021-06-03] MEDS: ipratropium-albuterol 3 mL Neb INHALATION ×2 (03:56→09:31)
[2021-06-03 04:44] LABS: Basophils % 0.3 %; Eosinophils % 0.3 %; Hematocrit 39.7 % (42.0-52.0); Lymphocytes # 2.5 10^3/uL (0.8-4.8); Mean Corpuscular HGB Conc 32.7 g/dL (30.0-36.0); Mean Corpuscular Hemoglobin 32.9 pg (28.0-34.0); Mean Corpuscular Volume 100.5 fl (80-94); Mean Platelet Volume 10.4 fL (7.4-10.4); Monocytes # 0.8 10^3/uL (0.2-0.9); Monocytes % 7.1 %; Neutrophils # 7.77 10^3/uL (1.8-7.7); Neutrophils % 69.9 %; Nucleated Red Blood Cells % 0 %; Platelet Count 197 10^3/cmm (130-400); Red Blood Count 3.95 10^6/uL (4.1-5.3); Red Cell Distribution Width 12.7 % (12.1-15.1); White Blood Count 11.1 10^3/uL (4.0-10.0)
[2021-06-03 05:09] LABS: Alanine Aminotransferase 10 U/L (0-41); Albumin Level 3.4 g/dL (3.5-5.2); Alkaline Phosphatase 61 IU/L (40-130); Anion Gap 11.1 (5-19); Aspartate Amino Transferase 14 U/L (0-40); Blood Urea Nitrogen 19 mg/dL (8-23); Calcium 9.3 mg/dL (8.5-10.5); Carbon Dioxide 28 mmol/L (22-29); Chloride 105 mmol/L (98-107); Globulin 2.6 g/dL (1.3-4.6); Glomerular Filtration Rate 169.6 mL/min (90-130); Glucose 129 mg/dL (65-115); Osmolality Calculated 294 mOsm/kg (285-295); Potassium 4.1 mmol/L (3.5-5.1); Sodium 140 mmol/L (136-145); Total Bilirubin 0.2 mg/dL (0.15-1.2)
[2021-06-03] MEDS: levoFLOXacin 500 mg Tablet PO (06:38)
[2021-06-03] MEDS: pantoprazole DR 40 mg Tablet PO (09:15)
[2021-06-03] MEDS: PARoxetine 20 mg Tablet 40 MG PO (09:15)
[2021-06-03] MEDS: predniSONE 20 mg Tablet 40 MG PO (09:15)
[2021-06-03] MEDS: enoxaparin 100 mg/mL Syringe 90 MG SUBCUT (09:16)
[2021-06-03] MEDS: montelukast sodium 10 mg Tablet PO (09:16)
[2021-06-03] MEDS: aspirin 81 mg EC Tablet PO (09:16)
[2021-06-03] MEDS: metoprolol tartrate 25 mg Tablet PO (09:16)
[2021-06-03] MEDS: budesonide 0.5 mg/2 mL Neb INHALATION (09:31)
--- NOTE | 2021-06-03 10:07 | PM.DCS ---
Discharge Providers Date of Admission: 06/01/21 00:06 Date of Discharge: June 03, 2021 Attending Provider at Admission: Meg Glaser DO Attending Provider at Discharge: Jose Madison MD Consults: Cardiology: Dr. Caraballo Primary Care Provider: SKYLAR Shipman Diagnoses at Discharge Discharge Diagnosis (1) Non-STEMI (non-ST elevated myocardial infarction): Status: Acute (2) Community acquired pneumonia: Status: Acute (3) Tobacco chew use: Status: Acute (4) COPD (chronic obstructive pulmonary disease): Status: Acute Reason for Visit Reason for Visit: RESP. DISTRESS Brief History: Chris Torres is a 61 year old male who is former heavy smoker, current tobacco chewer with h/o COPD with at least 3 episodes of exacerbation in last 1 year who was recently treated as an outpatient with oral antibiotics for community-acquired pneumonia a week ago presented to the ER on 06/01 with worsening shortness of breath for last 3 to 4 days. He denied any chest pain. Hospital Course Hospital Course Patient went to the hospital most likely secondary COPD exacerbation. He was started on IV steroids and empiric antibiotics. Was done which ruled out consolidation. Patient gradually improved with nebulization treatment. On admission patient was also found to have asked elevated troponins and there was concern for non-ST elevation NH. Given his extensive history of smoking and family history of CAD cardiology was consulted to rule out CAD. Echocardiogram was done which was negative for regional wall motion abnormality. Patient underwent cardiac stress test on 06/02 which was concerning for mild abdominal defect. Cardiology recommended medical management. He is been discharged hemodynamically stable condition on quick steroid taper, incentive spirometry with medical management for CAD and advised to follow-up with cardiology within next 3 weeks and with pulmonology within next 1 month. Patient was counseled in detail to quit tobacco chewing. Physical Exam Const: COMMON NORMALS: no acute distress, average body habitus, patient oriented x3, no limitations, healthy appearing, alert and well nourished HENMT: COMMON NORMALS: normocephalic, atraumatic, EAC's normal, TM's normal bilaterally, Normal external nose present, Normal nasal mucous membranes and turbinates present, moist oral mucous membranes, oropharynx normal, dentition normal and gingiva normal HEAD & SCALP: normal to inspection, normocephalic and atraumatic FACE & SINUS: normal facial exam NOSE: Normal external nose present and Normal nasal mucous membranes and turbinates present EXTERNAL AUDITORY CANAL: EAC's normal TYMPANIC MEMBRANE: TM's normal bilaterally Eye: COMMON NORMALS: Equal, round and reactive pupils present, EOMs intact bilaterally, conjunctivae normal, no scleral icterus, no papilledema, normal visual griggs by confrontation and fundi normal bilaterally GENERAL EYE: appearance normal, both eyes and all related structures ALIGNMENT: Yes alignment normal EYELID: eyelids normal CONJUNCTIVA: Yes conjunctivae normal SCLERA: sclerae normal PUPIL: Yes Equal, round and reactive pupils present EOM: Yes EOM abnormal DIRECT OPHTHALMOSCOPY: Yes no papilledema and Yes fundi normal bilaterally Neck/C-Spine: COMMON NORMALS: full ROM, no lymphadenopathy, supple, no meningeal signs, no JVD, Thyroid normal and No carotid bruits THYROID: Thyroid normal CERVICAL SPINE: Yes cervical ROM normal Lymph: LYMPHATIC: no lymphadenopathy noted Chest: COMMONS NORMALS: normal inspection of the chest, normal palpation of entire chest wall, normal inspection of the breasts and normal palpation of the breasts CHEST: Yes Symmetrical chest wall rise Resp: COMMON NORMALS: normal respiratory effort and percussion normal EFFORT & INSPECTION: Yes symmetric chest movement PERCUSSION: percussion normal Cardio: COMMON NORMALS: no JVD, regular rate, regular rhythm, S1 normal heart sound present, S2 normal heart sound present, No gallops present (Cardio), No clicks present (Cardio), No murmurs present (Cardio), No rub (Cardio) and Peripheral pulses 2+ throughout JUGULAR VENOUS DISTENTION: no JVD PALPATION: normal PMI RATE: regular rate RHYTHM: regular rhythm HEART SOUNDS: S1 normal heart sound present and S2 normal heart sound present PERIPHERAL PULSES: Peripheral pulses 2+ throughout GI: COMMON NORMALS: Normal to inspection, nondistended, normoactive bowel sounds present, Soft to palpation, non-tender, No hepatosplenomegaly present, no masses and no bruits INSPECTION: Yes normal to inspection AUSCULTATION: Yes normoactive bowel sounds PALPATION: Yes Soft to palpation and Yes No hepatosplenomegaly present PERCUSSION: normal to percussion RECTAL EXAM: Yes deferred : COMMON NORMALS: Yes no CVA tenderness, Yes normal external exam, Yes Testes normal, Yes scrotum normal, Yes no scrotal swelling and Yes No hernias present BLADDER/KIDNEY EXAM: Yes no CVA tenderness Back/Pelvis: COMMON NORMALS: no CVA tenderness, thoracic and lumbar spine normal to inspection, no thoracic nor lumbar tenderness, thoraco-lumbar ROM normal and straight leg raise negative bilaterally Extremity: COMMON NORMALS: normal to inspection, full ROM, capillary refill normal, no joint enlargement, no clubbing, cyanosis or edema, no calf tenderness and no pedal edema GENERAL: Yes normal exam except as noted Neuro: COMMON NORMALS: patient oriented x3, CN's II-XII intact bilaterally, moves all extremities, no focal motor deficits, no sensory deficits noted, deep tendon reflexes 2+ bilaterally and gait normal SENSORIUM/ORIENTATION: Yes alert MENINGEAL SIGNS: Yes no meningeal signs CRANIAL NERVES: Yes CN normal except as noted MOTOR EXAM: 5/5 motor strength present throughout DEEP TENDON REFLEXES: Right triceps reflex intensity grade: 2+, Left triceps reflex intensity grade: 2+, Rt Biceps (C5, C6): 2+, Left biceps reflex intensity grade: 2+, Right brachioradialis reflex intensity grade: 2+, Left brachioradialis reflex intensity grade: 2+, Right patellar reflex intensity grade: 2+, Left patellar reflex intensity grade: 2+, Right ankle reflex intensity grade: 2+ and Left ankle reflex intensity grade: 2+ PUPIL EXAM: Normal pupillary reactivity/response: bilateral, Dilated: bilateral, Pinpoint: bilateral, Mid position: bilateral, Sluggish: bilateral and Fixed/non-reactive: bilateral Psych: COMMON NORMALS: mental status grossly normal, Normal thought process present, cooperative, normal affect, speech normal, activity/motor behavior normal, denies hallucinations, denies homicidal ideation and denies suicidal ideation SPEECH: Yes normal speech THOUGHT PROCESS: Normal thought process present Skin: COMMON NORMALS: no rashes or lesions noted, no wounds, turgor normal, no jaundice, no petechiae and no mottling GENERAL SKIN EXAM: no rashes or lesions noted and turgor normal LESIONS: no lesions Discharge Data Studies Completed and Pending Completed Studies During Hospitalization Category Date Time Status CT head wo con* [id number] Stat Cat Scan 05/31/21 21:05 Completed Sestamibi Stress Test Request Routine Exams 06/01/21 17:08 Completed XR chest 1V portable [id number] Routine Exams 06/02/21 08:55 Completed XR chest 1V portable [id number] Urgent Exams 05/31/21 20:11 Completed NM vira perf SPECT r/s* [id number] Routine Nuc Med 06/02/21 07:00 Completed US echo complete [CV. echo complete* [id number]] Routine Ultrasound 06/01/21 08:45 Completed Pending at discharge Category Date Time Status Blood Culture Stat Lab 05/31/21 20:24 Results CBC Auto Diff [Complete Blood Count w/Auto] AM LABS Lab 06/04/21 04:00 Ordered Sputum Culture and Gram Stain Stat Lab 06/01/21 21:25 Results Radiology Impressions Head CT 05/31/21 21:05 IMPRESSION: No acute intracranial findings Chest X-Ray 06/02/21 08:55 IMPRESSION: 1. Mild improvement in the bilateral pulmonary opacifications consistent with improving pneumonia. 2. Very small bilateral pleural effusions. ECHOCARDIOGRAM CONCLUSIONS ?1. Normal left ventricular size, systolic function? with no?regional wall motion abnormalities. Left ventricular ejection?fraction is estimated at 65 %. Grade I diastolic dysfunction ?(abnormal relaxation filling pattern), normal to mildly elevated?filling pressures. ?2. Normal right ventricular size and systolic function. ?3. Sclerotic aortic valve. No significant? aortic valve?stenosis. ?4. No prior similar studies to compare. ?Carolyn Caraballo MD ?(Electronically Signed) ?Final Date:? ? ? 01 June 2021 ? 12:44 Lexiscan stress test ?IMPRESSIONS ?1. Small sized perfusion abnormality of mild severity of apical inferior wall?with?reversibility in apical inferior and apical lateral goins on stress?images. ?2.? This may represent small area of ischemia in left anterior descending/right?coronary artery territory. ?3.? Overall left ventricular systolic function is normal without regional wall?motion abnormalities, LVEF=68%. ?4.? No significant EKG changes with Lexiscan infusion.? Refer to separate?report for details. ?5.? No prior similar studies to compare. ?Carolyn Caraballo MD ?(Electronically Signed) ?Final Date:? ? ? 02 June 2021 ? 10:07 S Laboratory Results Lexiscan stress test: WBC 11.1 10^3/uL (4.0-10.0) H 06/03/21 04:00 RBC 3.95 10^6/uL (4.1-5.3) L 06/03/21 04:00 Hgb 13.0 g/dL (11.7-16.6) 06/03/21 04:00 Hct 39.7 % (42.0-52.0) L 06/03/21 04:00 MCV 100.5 fl (80-94) H 06/03/21 04:00 MCH 32.9 pg (28.0-34.0) 06/03/21 04:00 MCHC 32.7 g/dL (30.0-36.0) 06/03/21 04:00 RDW 12.7 % (12.1-15.1) 06/03/21 04:00 Plt Count 197 10^3/cmm (130-400) 06/03/21 04:00 MPV 10.4 fL (7.4-10.4) 06/03/21 04:00 Neut % (Auto) 69.9 % 06/03/21 04:00 Lymph % (Auto) 22.0 % 06/03/21 04:00 [place] % (Auto) 7.1 % 06/03/21 04:00 Eos % (Auto) 0.3 % 06/03/21 04:00 Baso % (Auto) 0.3 % 06/03/21 04:00 Neut # (Auto) 7.77 10^3/uL (1.8-7.7) H 06/03/21 04:00 Lymph # (Auto) 2.5 10^3/uL (0.8-4.8) 06/03/21 04:00 [place] # (Auto) 0.8 10^3/uL (0.2-0.9) 06/03/21 04:00 Eos # (Auto) 0.0 10^3/uL (0.0-0.8) 06/03/21 04:00 Baso # (Auto) 0.0 10^3/uL (0.0-0.1) 06/03/21 04:00 Nucleated RBC % (auto) 0 % 06/03/21 04:00 Nucleated RBCs # 0.0 /100WBC 06/03/21 04:00 D-Dimer 0.37 ug/mIFEU (0-0.59) 05/31/21 20:04 Specimen Type Arterial 05/31/21 23:02 Sample Site Radial, right 05/31/21 23:02 ABG pH 7.38 (7.35-7.45) 05/31/21 23:02 ABG pCO2 46.5 mmHg (35-45) H 05/31/21 23:02 ABG pO2 132.0 mmHg (80.0-100.0) H 05/31/21 23:02 ABG HCO3 27.2 mmol/L (22-26) H 05/31/21 23:02 ABG Base Excess 1.4 mmol/L (-2.0-2.0) 05/31/21 23:02 David Test Pos 05/31/21 23:02 Hematocrit 43.9 % (42-52) 05/31/21 23:02 O2 Delivery Device Bipap 05/31/21 23:02 FiO2 40.0 % 05/31/21 23:02 PEEP 6.0 cmH20 05/31/21 23:02 Fruit And Vegetable Inspector ID Hensa 05/31/21 23:02 Sodium 140 mmol/L (136-145) 06/03/21 04:00 Potassium 4.1 mmol/L (3.5-5.1) 06/03/21 04:00 Chloride 105 mmol/L (98-107) 06/03/21 04:00 Carbon Dioxide 28 mmol/L (22-29) 06/03/21 04:00 Anion Gap 11.1 (5-19) 06/03/21 04:00 BUN 19 mg/dL (8-23) 06/03/21 04:00 Creatinine 0.5 mg/dL (0.7-1.2) L 06/03/21 04:00 GFR Calculation 169.6 mL/min (90-130) H 06/03/21 04:00 Glucose 129 mg/dL (65-115) H 06/03/21 04:00 Estimat Average Glucose 97 06/02/21 01:53 Hemoglobin A1c 5.0 % (4.0-6.0) 06/02/21 01:53 Calculated Osmolality 294 mOsm/kg (285-295) 06/03/21 04:00 Lactic Acid 0.7 mmol/L (0.5-2.2) 05/31/21 20:04 Calcium 9.3 mg/dL (8.5-10.5) 06/03/21 04:00 Magnesium 2.2 mg/dL (1.7-2.3) 05/31/21 20:04 Iron 59 ug/dL (59-158) 06/02/21 01:53 TIBC 197 mcg/dl 06/02/21 01:53 % Saturation 29.9 % (20-50) 06/02/21 01:53 Unsat Iron Binding 138 ug/dL (112-347) 06/02/21 01:53 Total Bilirubin 0.2 mg/dL (0.15-1.2) 06/03/21 04:00 AST 14 U/L (0-40) 06/03/21 04:00 ALT 10 U/L (0-41) 06/03/21 04:00 Alkaline Phosphatase 61 IU/L (40-130) 06/03/21 04:00 Troponin T Baseline 6 ng/L (0-15) 05/31/21 20:04 Troponin T 120 Minute 123.9 ng/L (0-15) H 05/31/21 22:20 Delta Troponin T 117.9 ABS# (0-10) H* 05/31/21 22:20 Troponin T Hi Sens 6Hr 121.5 ng/L (0-15) H 06/01/21 02:40 Troponin T Hi Sens 6Hr Delta 115.5 ng/L (0-12) H* 06/01/21 02:40 C-Reactive Protein 9.0 mg/L (0.0-4.9) H 05/31/21 20:04 NT-Pro-B Natriuret Pep 61 pg/mL (0-125) 05/31/21 20:04 Total Protein 6.0 g/dL (6.6-8.7) L 06/03/21 04:00 Albumin 3.4 g/dL (3.5-5.2) L 06/03/21 04:00 Globulin 2.6 g/dL (1.3-4.6) 06/03/21 04:00 Triglycerides 87 mg/dL (0-150) 06/02/21 01:53 Cholesterol 164 mg/dL (0-200) 06/02/21 01:53 LDL Cholesterol, Calc 90 mg/dL (50-129) 06/02/21 01:53 Total VLDL Cholesterol 17 mg/dL (0-30) 06/02/21 01:53 HDL Cholesterol 57 mg/dL (60-100) L 06/02/21 01:53 Cholesterol/HDL Ratio 2.88 mg/dL (1.0-5.00) 06/02/21 01:53 Vitamin B12 467 pg/mL (232-1245) 05/31/21 20:04 Folate 12.6 ng/mL (4.5-32.2) 06/01/21 02:40 Procalcitonin 0.39 ng/mL (0-0.5) 06/02/21 01:53 TSH 2.17 uIU/mL (0.27-4.20) 05/31/21 20:04 Free T4 1.35 ng/dL (0.82-1.77) 05/31/21 20:04 Coronavirus 229E (PCR) Not detected (NOT DETECT) 05/31/21 20:24 Influenza Type A Ag Negative (Negative) 05/31/21 20:24 Influenza Type B Ag Negative (Negative) 05/31/21 20:24 SARS-CoV-2 (PCR) Not detected (NOT DETECT) 05/31/21 20:24 Vitals Last Vital Signs Temp 97.5 F L 06/03/21 07:40 Pulse 65 06/03/21 09:33 Resp 18 06/03/21 09:33 BP 143/86 06/03/21 07:40 Pulse Ox 97 06/03/21 09:33 Discharge Plan Discharge Patient Disposition: Home Condition: Stable Prescriptions: New atorvastatin 40 mg Tablet 20 mg PO BEDTIME 30 Days Qty: 30 0RF prednisone 20 mg Tablet 40 mg PO DAILY 5 Days Qty: 10 0RF aspirin 81 mg Tablet,Delayed Release (Dr/Ec) 81 mg PO DAILY Qty: 30 0RF levofloxacin 500 mg Tablet 500 mg PO DAILY@0600 Qty: 3 0RF metoprolol tartrate 25 mg Tablet 25 mg PO BID@0900,2100 30 Days Qty: 60 0RF ipratropium-albuterol 0.5 mg-3 mg(2.5 mg base)/3 mL solution for nebulization 3 ml inhalation TID Qty: 90 0RF Continued albuterol sulfate 90 mcg/actuation HFA aerosol inhaler 1 inh inhalation Q4H PRN (Reason: shortness of breath or wheezing) 0RF montelukast [Singulair] 10 mg tablet 10 mg PO DAILY 0RF paroxetine HCl 40 mg tablet 40 mg PO DAILY 0RF Trelegy Ellipta 100-62.5-25 mcg blister with device 1 inh inhalation DAILY Qty: 60 3RF Discharge Orders: Discharge Order (Routine); Ordered 06/03/21 Ordered By: Jose Madison Referrals: Humaira Estrada FNP [Primary Care Provider] - DatarJani MD [Physician] - 2 months Carolyn Caraballo MD [Physician] - 1 month Discharge Diet: Cardiac Discharge Activity: Resume usual activity and Increase activity as tolerated Patient Instructions: Opioid Safety Activity Restrictions/Additional Instructions: Please follow-up with cardiology within next 1 month. Please follow-up pulmonology within next 2 months. Continue taking nebulization treatment. Please abstain from tobacco chewing or smoking as much as possible. Discharge Attestations Time Spent in Discharge Care*: greater than 30 min Status at Discharge: Cognitive status at discharge: cognitively intact, Behavioral status at discharge: cooperative, Functional status at discharge: independent ambulation, Overall status at discharge: patient is back to baseline Quality Metrics Clinical Quality Measures [ Acute Myocardial Infaction { Clinical Trial Participant: No; Contraindication to aspirin: None; Aspirin prescribed; Contraindication to statin: None; Statin prescribed; Contraindication to PCI: Intervention not indicated; Contraindication to Fibrinolytics: None; fibrinolytics given}] Coding Level of Care Code Acute g FW DC note Diagnoses Non-STEMI (non-ST elevated myocardial infarction) I21.4 Community acquired pneumonia J18.9 Tobacco chew use Z72.0 COPD (chronic obstructive pulmonary disease) J44.9
--- NOTE | 2021-06-03 11:26 | PM.PN ---
Subjective Subjective: Patient feels better denies any complaints. Medications: Reviewed: Yes Vitals/I&O/Wt Last Vital Signs Temp 97.5 F L 06/03/21 08:00 Pulse 65 06/03/21 09:33 Resp 18 06/03/21 09:33 BP 143/86 06/03/21 08:00 Pulse Ox 97 06/03/21 09:33 06/02/21 06/03/21 06/03/21 22:59 06:59 14:59 Intake Total 652 / 1172 100 / 1272 350 / 350 Output Total 600 / 1400 Balance 52 / -228 100 / -128 350 / 350 Physical Exam Narrative: GENERAL: Averagely built and averagely nourished in no acute distress HEENT: No pallor or icterus. NECK: No JVD, No carotid bruit. CARDIOVASCULAR SYSTEM: S1-S2 regular. No murmur or gallops. RESPIRATORY SYSTEM: Chest clear to auscultation. Prolonged expiration. No wheezes or rales. No use of accessory muscles. ABDOMEN: Soft, nontender and nondistended. Normal bowel sounds present. EXTREMITIES: No cyanosis or edema. STUDENT NURSE: Patient is alert oriented ?3. No focal neurological deficits. SKIN: Normal turgor and temperature. PSYCH: Normal insight and judgment. Data : 06/03/21 04:00 06/03/21 04:00 Micro: Microbiology 06/01/21 21:25 Gram Stain - Final Sputum - Expectorated Sputum Sputum Culture - Preliminary 06/01/21 21:25 Legionella Urinary Antigen - Final Urine,Voided Bacterial Antigens - Final A&P Assessment and plan (1) Non-STEMI (non-ST elevated myocardial infarction): No EKG changes and no RWMA -Mildly abnormal stress test. -CAD risk factor of tobacco abuse. -Continue aspirin statin and low-dose metoprolol on discharge. -Nitroglycerin sublingual as needed -Follow-up in 2-4 weeks at [facility]. Status: Acute (2) Community acquired pneumonia: On antibiotics as per primary team Status: Acute (3) Tobacco chew use: Advised on tobacco cessation. Status: Acute (4) COPD (chronic obstructive pulmonary disease): Status: Acute Attestations Medical Necessity Statement*: Stable to be discharged from cardiac standpoint Coding Level of Care Code Acute Lithography Contact Worker for g Fwd Diagnoses Non-STEMI (non-ST elevated myocardial infarction) I21.4 Community acquired pneumonia J18.9 Tobacco chew use Z72.0 COPD (chronic obstructive pulmonary disease) J44.9
--- NOTE | 2021-06-03 13:49 | PC.NURSE ---
Discharge Note Patient discharged to home via private vehicle accompanied by family members. All lines removed. Discharge instructions reviewed with patient and/or door to door sales representative. Patient verbalized understanding of all teaching. Mobile pharmacy medications and/or prescriptions provided. Belongings/home medications returned.
== END 2021-06-03 13:00 | disposition home or self-care (01) | DRG 193 ==
LOC: ER 23:52 → CSU 06-01 00:18
PROVIDERS: Internal Medicine; Admitting Provider Internal Medicine; Emergency Provider Emergency Medicine; PCP Nurse Practitioner Family; Visit Provider Student in an Organized Health Care Education/Training Program
DX: J18.9 Pneumonia, unspecified organism (principal); I21.4 Non-ST elevation (NSTEMI) myocardial infarction; J96.01 Acute respiratory failure with hypoxia; J44.1 Chronic obstructive pulmonary disease with (acute) exacerbation; F17.220 Nicotine dependence, chewing tobacco, uncomplicated; I95.9 Hypotension, unspecified; Z99.81 Dependence on supplemental oxygen; F32.A Depression, unspecified; F41.9 Anxiety disorder, unspecified
CPT/HCPCS: 36415; 36600; 70450; 71045; 78452; 80048; 80053; 80061; 82607; 82746; 82803; 83036; 83540; 83550; 83605; 83735; 83880; 84145; 84439; 84443; 84484; 85025; 85378; 86140; 86403; 87040; 87070; 87205; 87449; 87635; 87804; 93005; 93017; 93306; 94640; 94660; 96365; 96367; 96372; 96375; 99291; A9500; J0456; J0696; J1650; J2543; J2785; J2930; J3370; J7030; J7050; J7512; J7626

== ENCOUNTER 2021-08-23 21:17 | Emergency (ER) | payer MEDICAID, SELFPAY ==
--- NOTE | 2021-08-23 21:27 | CTR_ITS ---
PROCEDURE INFORMATION: Exam: CT Head Without Contrast Exam date and time: 08/23/2021 10:07 PM Age: 61 years old Clinical indication: Injury or trauma; Fall; Blunt trauma (contusions or hematomas); Additional info: Syncope, head trauma TECHNIQUE: Imaging protocol: Computed tomography of the head without contrast. Radiation optimization: All CT scans at this facility use at least one of these dose optimization techniques: automated exposure control; mA and/or kV adjustment per patient size (includes targeted exams where dose is matched to clinical indication); or iterative reconstruction. COMPARISON: CT head wo con* [id number] 05/31/2021 11:00 PM RADIATION DOSE METRICS: Total DLP (mGy-cm): 971.59 FINDINGS: Brain: Normal. No hemorrhage. Unremarkable white matter. No mass effect. Cerebral ventricles: No ventriculomegaly. Paranasal sinuses: Moderate bilateral ethmoid sinus disease. Mastoid air cells: Visualized mastoid air cells are well aerated. Bones/joints: Unremarkable. No acute fracture. Soft tissues: Unremarkable. CT/CT head wo con* [id number] IMPRESSION: 1. Moderate bilateral ethmoid sinus disease. 2. No acute intracranial findings.
--- NOTE | 2021-08-23 21:27 | XRR_ITS ---
The PROCEDURE INFORMATION: Exam: XR Chest Exam date and time: 08/23/2021 10:26 PM Age: 61 years old Clinical indication: Injury or trauma; Fall; Blunt trauma (contusions or hematomas); Additional info: Syncope TECHNIQUE: Imaging protocol: XR of the chest. Views: 1 view. COMPARISON: CR XR chest 1V portable [id number] 06/02/2021 9:07 AM FINDINGS: Tubes, catheters and devices: EKG monitoring leads overlie the thoracic wall. Lungs: There is redemonstration of right basilar and left mid lung opacities consistent with pneumonia. At the right lung base, a prominent nodular opacities seen peripherally, larger than on the comparison examination but improved from 05/31/2021. Pleural spaces: Bilateral pleural thickening remains unchanged. There has been some interval improvement in bilateral pleural effusions. No pneumothorax. Heart/Mediastinum: The heart is magnified by the patient's supine position. Bones/joints: No acute fracture is identified. XR/XR chest 1V portable [id number] IMPRESSION: 1. Bilateral parenchymal opacities consistent with pneumonia that have improved from 05/31/2021 but appear larger than on 06/02/2021; thus, resolution is not complete. 2. Masslike appearance of the right basilar opacity that may or may not be artifactual. Consider CT scan for further characterization if clinically indicated. 3. No fracture is identified on this single AP view of the chest.
--- NOTE | 2021-08-23 21:29 | ECG_ITS ---
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 Measurements Intervals [place] Rate: 74 P: 67 UT: 196 QRS: 30 QRSD: 86 T: 47 QT: 372 QTc: 414 Interpretive Statements SINUS RHYTHM POSSIBLE LEFT ATRIAL ENLARGEMENT [-0.1mV P-WAVE IN V1/V2] ST ELEVATION, PROBABLY EARLY REPOLARIZATION [ST ELEVATION WITH NORMALLY INFLECTED T-WAVE] Compared to ECG 06/01/2021 06:43:15 ST (T wave) deviation now present Early repolarization now present Myocardial infarct finding no longer present Electronically Signed On 08-24-2021 20:28:08 CDT by Yahir Orta M.D. [id number]
--- NOTE | 2021-08-23 21:38 | CTR_ITS ---
PROCEDURE INFORMATION: Exam: CT Maxillofacial Without Contrast Exam date and time: 08/23/2021 10:10 PM Age: 61 years old Clinical indication: Injury or trauma; Fall; Blunt trauma (contusions or hematomas); Nose TECHNIQUE: Imaging protocol: Computed tomography images of the face without contrast. Radiation optimization: All CT scans at this facility use at least one of these dose optimization techniques: automated exposure control; mA and/or kV adjustment per patient size (includes targeted exams where dose is matched to clinical indication); or iterative reconstruction. COMPARISON: CT head wo con* [id number] 08/23/2021 10:07 PM RADIATION DOSE METRICS: Total DLP (mGy-cm): 835.34 FINDINGS: Orbital cavities: Orbits are normal. Globes are unremarkable. Bones/joints: Mild levoscoliosis. Paranasal sinuses: Mild bilateral ethmoid sinus disease. Soft tissues: Possible laceration over the right paramedian anterior nose. CT/CT facial bones wo con* [id number] IMPRESSION: Possible laceration over the right paramedian anterior nose. Impression.
--- NOTE | 2021-08-23 21:38 | CTR_ITS ---
PROCEDURE INFORMATION: Exam: CT Cervical Spine Without Contrast Exam date and time: 08/23/2021 10:13 PM Age: 61 years old Clinical indication: Injury or trauma; Fall; Blunt trauma TECHNIQUE: Imaging protocol: Computed tomography images of the cervical spine without contrast. Radiation optimization: All CT scans at this facility use at least one of these dose optimization techniques: automated exposure control; mA and/or kV adjustment per patient size (includes targeted exams where dose is matched to clinical indication); or iterative reconstruction. COMPARISON: CT facial bones wo con* [id number] 08/23/2021 10:10 PM RADIATION DOSE METRICS: Total DLP (mGy-cm): 835.34 FINDINGS: Bones/joints: Moderate to severe multilevel spine degenerative changes including degenerative disc disease, spondylosis and facet degenerative changes. Discs/Spinal canal/Neural foramina: Multilevel bilateral foraminal stenosis. Lungs: Lung apices are normal. Soft tissues: Unremarkable. CT/CT cervical spin wo con* [id number] IMPRESSION: No acute C-spine findings.
[2021-08-23 21:43] VITALS: BP 140/88; PULSE 78; RESP 16; O2SAT 96; BMI 27.9
[2021-08-23 22:00] VITALS: RESP 22
[2021-08-23] MEDS: fentaNYL 50 mcg/mL INJ 2mL IVP (22:00)
[2021-08-23 22:07] LABS: Basophils # 0.1 10^3/uL (0.0-0.1); Basophils % 0.7 %; Eosinophils # 0.3 10^3/uL (0.0-0.8); Eosinophils % 2.1 %; Hematocrit 37.4 % (42.0-52.0); Lymphocytes # 1.5 10^3/uL (0.8-4.8); Lymphocytes % 11.9 %; Mean Corpuscular HGB Conc 34.8 g/dL (30.0-36.0); Mean Corpuscular Hemoglobin 33.3 pg (28.0-34.0); Mean Corpuscular Volume 95.9 fl (80-94); Mean Platelet Volume 9.9 fL (7.4-10.4); Monocytes # 0.9 10^3/uL (0.2-0.9); Monocytes % 7.3 %; Neutrophils # 9.75 10^3/uL (1.8-7.7); Neutrophils % 77.7 %; Nucleated Red Blood Cells % 0 %; Platelet Count 214 10^3/cmm (130-400); Red Cell Distribution Width 12.8 % (12.1-15.1); White Blood Count 12.6 10^3/uL (4.0-10.0)
[2021-08-23 22:08] VITALS: TEMP 36.7
--- NOTE | 2021-08-23 22:09 | ED_ITS ---
Documented by User: Jayme Rowe DO 08/23/21 23:14 HPI - Fall General: Chief Complaint: Fall Stated Complaint: FALL/ETOH Time Seen by Provider: 08/23/21 21:21 History of Present Illness: 61-year-old male presents following a fall. Patient reports that he had about 6 beers today. He was at [employer]. They were going outside to get ready to get something to eat. When he was going outside he became very nauseated felt like he was going to vomit. He then had a syncopal event in which he fell and hit his head. He has a large laceration on his nose. He complains of bilateral finger tingling and pain. Patient was C- collared prior to arrival. Reports when it initially happened he felt like he had a hard time even moving his fingers. Patient reports he is recently was treated for a heart attack but denies any chest pain. Patient's main complaint is pain in his head, face and the tingling and pain in the bilateral fingers. Patient has full but painful range of motion. Patient complains of burning pain that goes through his shoulders and down into his fingers but mainly severe pain in the distal fingertip Associated symptoms-after fall: Denies abdominal pain or chest pain Review of Systems Const: Denies: fever(s) or chills Eyes: Denies: change in vision or blurry vision Card: Denies: chest pain or palpitations Resp: Denies: dyspnea or productive cough GI: Reports: nausea; Denies: abdominal pain or vomiting : Denies: flank pain, difficulty urinating or dysuria Musc: Reports: extremity pain (Please see HPI) Skin/Breast: Reports: other (Laceration bridge of nose) Neuro: Reports: numbness in extremities and other ( Paresthesia in bilateral fingertips) Psych: Denies: anxiety or depression PFSH ED PFSH: Medical History CAD (coronary artery disease) COPD (chronic obstructive pulmonary disease) Respiratory failure Tobacco chew use Social History Smoking and tobacco status: former smoker Quit status (tobacco): has quit using tobacco Year quit tobacco: 2006 Former quit date comment: 2ppd x 35 years Physical Exam Const: GENERAL APPEARANCE: other (Uncomfortable) HENMT: NOSE: Other nasal findings present (Laceration bridge of nose) MOUTH: other (Swelling of upper lip) Neck/C-Spine: CERVICAL SPINE: Yes collar present Chest: COMMONS NORMALS: normal inspection of the chest and normal palpation of entire chest wall Resp: COMMON NORMALS: normal respiratory effort, No retractions and clear to auscultation bilaterally AUSCULTATION: clear to auscultation bilaterally Cardio: COMMON NORMALS: regular rate and regular rhythm RATE: regular rate RHYTHM: regular rhythm GI: COMMON NORMALS: Normal to inspection, nondistended, normoactive bowel sounds present, Soft to palpation and non-tender PALPATION: Yes Soft to palpation Extremity: NARRATIVE EXTREMITY EXAM: Patient with significant burning pain especially distal fingertips Course Vital Signs: Vital signs: Vital Signs Temperature 98.1 F 08/23/21 22:08 Pulse Rate 76 08/24/21 01:00 Respiratory Rate 20 H 08/24/21 00:13 Blood Pressure 134/95 08/24/21 01:00 Pulse Oximetry 87 L 08/24/21 01:00 MDM - Fall Lab Data : 08/23/21 22:00 08/23/21 22:00 Radiology Impressions Chest X-Ray 08/23/21 21:27 IMPRESSION: 1. Bilateral parenchymal opacities consistent with pneumonia that have improved from 05/31/2021 but appear larger than on 06/02/2021; thus, resolution is not complete. 2. Masslike appearance of the right basilar opacity that may or may not be artifactual. Consider CT scan for further characterization if clinically indicated. 3. No fracture is identified on this single AP view of the chest. ADDENDUM: 08/23/212341 Findings were discussed with Dr. Rahman at 08/23/2021 11:[address] 08/23/21 21:27 IMPRESSION: 1. Moderate bilateral ethmoid sinus disease. 2. No acute intracranial findings. Cervical Spine CT 08/23/21 21:38 IMPRESSION: No acute C-spine findings. Face CT 08/23/21 21:38 IMPRESSION: Possible laceration over the right paramedian anterior nose. Impression. ADDENDUM: 08/23/212226 Impression: 1. Probable laceration over the right paramedian anterior nose. 2. Mild bilateral ethmoid sinus disease. Cervical Spine MRI 08/23/21 22:48 IMPRESSION: No acute spinal injury. Laboratory Results WBC 12.6 10^3/uL (4.0-10.0) H 08/23/21 22:00 RBC 3.90 10^6/uL (4.1-5.3) L 08/23/21 22:00 Hgb 13.0 g/dL (11.7-16.6) 08/23/21 22:00 Hct 37.4 % (42.0-52.0) L 08/23/21:00 MCV 95.9 fl (80-94) H 08/23/21 22:00 MCH 33.3 pg (28.0-34.0) 08/23/21:00 MCHC 34.8 g/dL (30.0-36.0) 08/23/21:00 RDW 12.8 % (12.1-15.1) 08/23/21:00 Plt Count 214 10^3/cmm (130-400) 08/23/21 22:00 MPV 9.9 fL (7.4-10.4) 08/23/21:00 Neut % (Auto) 77.7 % 08/23/21 22:00 Lymph % (Auto) 11.9 % 08/23/21 22:00 [place] % (Auto) 7.3 % 08/23/21 22:00 Eos % (Auto) 2.1 % 08/23/21 22:00 Baso % (Auto) 0.7 % 08/23/21 22:00 Neut # (Auto) 9.75 10^3/uL (1.8-7.7) H 08/23/21 22:00 Lymph # (Auto) 1.5 10^3/uL (0.8-4.8) 08/23/21 22:00 [place] # (Auto) 0.9 10^3/uL (0.2-0.9) 08/23/21 22:00 Eos # (Auto) 0.3 10^3/uL (0.0-0.8) 08/23/21 22:00 Baso # (Auto) 0.1 10^3/uL (0.0-0.1) 08/23/21 22:00 Nucleated RBC % (auto) 0 % 08/23/21:00 Nucleated RBCs # 0.0 /100WBC 08/23/21 22:00 Sodium 134 mmol/L (136-145) L 08/23/21 22:00 Potassium 3.7 mmol/L (3.5-5.1) 08/23/21 22:00 Chloride 101 mmol/L (98-107) 08/23/21 22:00 Carbon Dioxide 22 mmol/L (22-29) 08/23/21 22:00 Anion Gap 14.7 (5-19) 08/23/21 22:00 BUN 16 mg/dL (8-23) 08/23/21 22:00 Creatinine 0.8 mg/dL (0.7-1.2) 08/23/21 22:00 GFR Calculation 98.6 mL/min (90-130) 08/23/21 22:00 Glucose 89 mg/dL (65-115) 08/23/21 22:00 Calculated Osmolality 279 mOsm/kg (285-295) L 08/23/21 22:00 Calcium 8.3 mg/dL (8.5-10.5) L 08/23/21 22:00 Magnesium 1.8 mg/dL (1.7-2.3) 08/23/21 22:00 Total Bilirubin 0.3 mg/dL (0.15-1.2) 08/23/21 22:00 AST 17 U/L (0-40) 08/23/21 22:00 ALT 11 U/L (0-41) 08/23/21 22:00 Alkaline Phosphatase 73 IU/L (40-130) 08/23/21 22:00 Troponin T Gen 5 ng/L 6 ng/L (0-15) 08/23/21 22:00 Total Protein 6.1 g/dL (6.6-8.7) L 08/23/21 22:00 Albumin 3.7 g/dL (3.5-5.2) 08/23/21 22:00 Globulin 2.4 g/dL (1.3-4.6) 08/23/21 22:00 Urine Color Yellow (Yellow) 08/24/21 00:52 Urine Appearance Clear (CLEAR) 08/24/21 00:52 Urine pH 5 (5-7) 08/24/21 00:52 Ur Specific [place] 1.020 (1.005-1.030) 08/24/21 00:52 Urine Protein Neg (Negative) 08/24/21 00:52 Urine Glucose (UA) Norm (Normal) 08/24/21 00:52 Urine Ketones Negative (Negative) 08/24/21 00:52 Urine Blood 2+ (Negative) H 08/24/21 00:52 Urine Nitrate Negative (Negative) 08/24/21 00:52 Urine Bilirubin Neg (Negative) 08/24/21 00:52 Urine Urobilinogen Norm mg/dL (Negative) 08/24/21 00:52 Ur Leukocyte Esterase Negative (Negative) 08/24/21 00:52 Urine RBC 5-10 /hpf (0-2) H 08/24/21 00:52 Urine WBC 0-4 /hpf (0-5) H 08/24/21 00:52 Ur Squamous Epith Cells 0-4 /hpf (0-5) H 08/24/21 00:52 Amorphous Sediment Not Reportable 08/24/21 00:52 Urine Bacteria Trace /hpf (NONE) 08/24/21 00:52 Ethyl Alcohol 27 mg/dL (0-10) H 08/23/21 22:00 Discharge Plan Discharge Patient Disposition: Home Clinical Impression: Neurapraxia Condition: Stable Prescriptions: New Percocet 7.5-325 mg tablet 1 tab PO Q6H PRN (Reason: pain) Qty: 10 0RF Medrol (Cody) 4 mg tablets,dose pack See Rx Instructions .ROUTE .COMPLEX Qty: 21 0RF Rx Instructions: orally per package directions No Action albuterol sulfate 90 mcg/actuation HFA aerosol inhaler 1 inh inhalation Q4H PRN (Reason: shortness of breath or wheezing) 0RF montelukast [Singulair] 10 mg tablet 10 mg PO DAILY 0RF paroxetine HCl 40 mg tablet 40 mg PO DAILY 0RF Trelegy Ellipta 100-62.5-25 mcg blister with device 1 inh inhalation DAILY Qty: 60 3RF atorvastatin [Lipitor] 40 mg tablet 40 mg PO DAILY Qty: 90 2RF metoprolol succinate 50 mg tablet extended release 24 hr 50 mg PO DAILY Qty: 90 3RF aspirin 81 mg Tablet,Delayed Release (Dr/Ec) 81 mg PO DAILY Qty: 30 0RF ipratropium-albuterol 0.5 mg-3 mg(2.5 mg base)/3 mL solution for nebulization 3 ml inhalation TID Qty: 90 0RF Discharge Orders: Discharge ED (Routine); Ordered 08/24/21 Ordered By: Dorian Rahman Referrals: Humaira Estrada FNP [Primary Care Provider] - 1-3 days Patient Instructions: Neurapraxia (ED), Opioid Safety Activity Restrictions/Additional Instructions: Return for progressing weakness of your upper or lower extremities despite treatment, worsening pain despite treatment, any other concerning symptoms Coding Level of Care Code ED Manager Disaster Recovery for Chg Fwd Exam Detailed Documented by User: Dorian Rahman, DO 08/24/21 02:47 HPI - Fall General: Chief Complaint: Fall Stated Complaint: FALL/ETOH Time Seen by Provider: 08/23/21 21:21 PFSH ED PFSH: Medical History CAD (coronary artery disease) COPD (chronic obstructive pulmonary disease) Respiratory failure Tobacco chew use Social History Smoking and tobacco status: former smoker Quit status (tobacco): has quit using tobacco Year quit tobacco: 2006 Former quit date comment: 2ppd x 35 years Course Vital Signs: Vital signs: Vital Signs Temperature 98.1 F 08/23/21 22:08 Pulse Rate 76 08/24/21 01:00 Respiratory Rate 20 H 08/24/21 00:13 Blood Pressure 134/95 08/24/21 01:00 Pulse Oximetry 87 L 08/24/21 01:00 MDM - Fall Medical Decision Making 61-year-old male checked out to me by Dr. Rowe at shift change this gentleman sustained a fall, and has intense neuropathic pain to the his upper extremities bilaterally. No involvement of his lower extremities. He has no strength deficits. He has no sensation deficits. Symptoms are indicative of a neuropraxia/transient quadriplegia bilaterally. It appears to be improving. CT of the cervical spine did not show any fracture. CT head is nonacute. Neurology was consulted by Dr. Rowe, and they suggested MRI of the cervical spine, which is also negative showing no cord compression or contusion. With some improvement in his symptoms, negative imaging, he will be allowed home. He has been given steroids here which may help the neuropraxia symptoms. He will be allowed home steroids, gabapentin, pain medication for the next few days. Close outpatient follow-up with his doctor. Lab Data : 08/23/21 22:00 08/23/21 22:00 Radiology Impressions Chest X-Ray 08/23/21:27 IMPRESSION: 1. Bilateral parenchymal opacities consistent with pneumonia that have improved from 05/31/2021 but appear larger than on 06/02/2021; thus, resolution is not complete. 2. Masslike appearance of the right basilar opacity that may or may not be artifactual. Consider CT scan for further characterization if clinically indicated. 3. No fracture is identified on this single AP view of the chest. ADDENDUM: 08/23/212341 Findings were discussed with Dr. Rahman at 08/23/2021 11:[address] 08/23/21:27 IMPRESSION: 1. Moderate bilateral ethmoid sinus disease. 2. No acute intracranial findings. Cervical Spine CT 08/23/21 21:38 IMPRESSION: No acute C-spine findings. Face CT 08/23/21 21:38 IMPRESSION: Possible laceration over the right paramedian anterior nose. Impression. ADDENDUM: 08/23/212226 Impression: 1. Probable laceration over the right paramedian anterior nose. 2. Mild bilateral ethmoid sinus disease. Cervical Spine MRI 08/23/21 22:48 IMPRESSION: No acute spinal injury. Laboratory Results WBC 12.6 10^3/uL (4.0-10.0) H 08/23/21 22:00 RBC 3.90 10^6/uL (4.1-5.3) L 08/23/21 22:00 Hgb 13.0 g/dL (11.7-16.6) 08/23/21 22:00 Hct 37.4 % (42.0-52.0) L 08/23/21 22:00 MCV 95.9 fl (80-94) H 08/23/21 22:00 MCH 33.3 pg (28.0-34.0) 08/23/21 22:00 MCHC 34.8 g/dL (30.0-36.0) 08/23/21 22:00 RDW 12.8 % (12.1-15.1) 08/23/21 22:00 Plt Count 214 10^3/cmm (130-400) 08/23/21 22:00 MPV 9.9 fL (7.4-10.4) 08/23/21 22:00 Neut % (Auto) 77.7 % 08/23/21 22:00 Lymph % (Auto) 11.9 % 08/23/21 22:00 [place] % (Auto) 7.3 % 08/23/21 22:00 Eos % (Auto) 2.1 % 08/23/21 22:00 Baso % (Auto) 0.7 % 08/23/21 22:00 Neut # (Auto) 9.75 10^3/uL (1.8-7.7) H 08/23/21 22:00 Lymph # (Auto) 1.5 10^3/uL (0.8-4.8) 08/23/21 22:00 [place] # (Auto) 0.9 10^3/uL (0.2-0.9) 08/23/21 22:00 Eos # (Auto) 0.3 10^3/uL (0.0-0.8) 08/23/21 22:00 Baso # (Auto) 0.1 10^3/uL (0.0-0.1) 08/23/21 22:00 Nucleated RBC % (auto) 0 % 08/23/21 22:00 Nucleated RBCs # 0.0 /100WBC 08/23/21 22:00 Sodium 134 mmol/L (136-145) L 08/23/21 22:00 Potassium 3.7 mmol/L (3.5-5.1) 08/23/21 22:00 Chloride 101 mmol/L (98-107) 08/23/21 22:00 Carbon Dioxide 22 mmol/L (22-29) 08/23/21 22:00 Anion Gap 14.7 (5-19) 08/23/21 22:00 BUN 16 mg/dL (8-23) 08/23/21 22:00 Creatinine 0.8 mg/dL (0.7-1.2) 08/23/21 22:00 GFR Calculation 98.6 mL/min (90-130) 08/23/21 22:00 Glucose 89 mg/dL (65-115) 08/23/21 22:00 Calculated Osmolality 279 mOsm/kg (285-295) L 08/23/21 22:00 Calcium 8.3 mg/dL (8.5-10.5) L 08/23/21 22:00 Magnesium 1.8 mg/dL (1.7-2.3) 08/23/21 22:00 Total Bilirubin 0.3 mg/dL (0.15-1.2) 08/23/21 22:00 AST 17 U/L (0-40) 08/23/21:00 ALT 11 U/L (0-41) 08/23/21:00 Alkaline Phosphatase 73 IU/L (40-130) 08/23/21 22:00 Troponin T Gen 5 ng/L 6 ng/L (0-15) 08/23/21:00 Total Protein 6.1 g/dL (6.6-8.7) L 08/23/21:00 Albumin 3.7 g/dL (3.5-5.2) 08/23/21 22:00 Globulin 2.4 g/dL (1.3-4.6) 08/23/21 22:00 Urine Color Yellow (Yellow) 08/24/21 00:52 Urine Appearance Clear (CLEAR) 08/24/21 00:52 Urine pH 5 (5-7) 08/24/21 00:52 Ur Specific [place] 1.020 (1.005-1.030) 08/24/21 00:52 Urine Protein Neg (Negative) 08/24/21 00:52 Urine Glucose (UA) Norm (Normal) 08/24/21 00:52 Urine Ketones Negative (Negative) 08/24/21 00:52 Urine Blood 2+ (Negative) H 08/24/21 00:52 Urine Nitrate Negative (Negative) 08/24/21 00:52 Urine Bilirubin Neg (Negative) 08/24/21 00:52 Urine Urobilinogen Norm mg/dL (Negative) 08/24/21 00:52 Ur Leukocyte Esterase Negative (Negative) 08/24/21 00:52 Urine RBC 5-10 /hpf (0-2) H 08/24/21 00:52 Urine WBC 0-4 /hpf (0-5) H 08/24/21 00:52 Ur Squamous Epith Cells 0-4 /hpf (0-5) H 08/24/21 00:52 Amorphous Sediment Not Reportable 08/24/21 00:52 Urine Bacteria Trace /hpf (NONE) 08/24/21 00:52 Ethyl Alcohol 27 mg/dL (0-10) H 08/23/21 22:00 Discharge Plan Discharge Patient Disposition: Home Clinical Impression: Neurapraxia Condition: Stable Prescriptions: New Percocet 7.5-325 mg tablet 1 tab PO Q6H PRN (Reason: pain) Qty: 10 0RF Medrol ([place]) 4 mg tablets,dose pack See Rx Instructions .ROUTE .COMPLEX Qty: 21 0RF Rx Instructions: orally per package directions No Action albuterol sulfate 90 mcg/actuation HFA aerosol inhaler 1 inh inhalation Q4H PRN (Reason: shortness of breath or wheezing) 0RF montelukast [Singulair] 10 mg tablet 10 mg PO DAILY 0RF paroxetine HCl 40 mg tablet 40 mg PO DAILY 0RF Trelegy Ellipta 100-62.5-25 mcg blister with device 1 inh inhalation DAILY Qty: 60 3RF atorvastatin [Lipitor] 40 mg tablet 40 mg PO DAILY Qty: 90 2RF metoprolol succinate 50 mg tablet extended release 24 hr 50 mg PO DAILY Qty: 90 3RF aspirin 81 mg Tablet,Delayed Release (Dr/Ec) 81 mg PO DAILY Qty: 30 0RF ipratropium-albuterol 0.5 mg-3 mg(2.5 mg base)/3 mL solution for nebulization 3 ml inhalation TID Qty: 90 0RF Discharge Orders: Discharge ED (Routine); Ordered 08/24/21 Ordered By: Dorian Rahman Referrals: Humaira Estrada FNP [Primary Care Provider] - 1-3 days Patient Instructions: Neurapraxia (ED), Opioid Safety Activity Restrictions/Additional Instructions: Return for progressing weakness of your upper or lower extremities despite treatment, worsening pain despite treatment, any other concerning symptoms Coding Level of Care Code ED Manager Disaster Recovery for Chg Fwd Exam Detailed
[2021-08-23 22:26] LABS: Alanine Aminotransferase 11 U/L (0-41); Albumin Level 3.7 g/dL (3.5-5.2); Alcohol Level 27 mg/dL (0-10); Alkaline Phosphatase 73 IU/L (40-130); Anion Gap 14.7 (5-19); Aspartate Amino Transferase 17 U/L (0-40); Blood Urea Nitrogen 16 mg/dL (8-23); Calcium 8.3 mg/dL (8.5-10.5); Carbon Dioxide 22 mmol/L (22-29); Chloride 101 mmol/L (98-107); Globulin 2.4 g/dL (1.3-4.6); Glomerular Filtration Rate 98.6 mL/min (90-130); Glucose 89 mg/dL (65-115); Magnesium 1.8 mg/dL (1.7-2.3); Osmolality Calculated 279 mOsm/kg (285-295); Potassium 3.7 mmol/L (3.5-5.1); Sodium 134 mmol/L (136-145); Total Bilirubin 0.3 mg/dL (0.15-1.2); Total Protein 6.1 g/dL (6.6-8.7); Troponin T (5th) Once 6 ng/L (0-15)
[2021-08-23 22:30] VITALS: BP 122/100; PULSE 82; RESP 19; O2SAT 96
--- NOTE | 2021-08-23 22:48 | MRR_ITS ---
PROCEDURE INFORMATION: Exam: MR Cervical Spine Without and With Contrast Exam date and time: 08/23/2021 11:40 PM Age: 61 years old Clinical indication: Radicular pain (radiculopathy); Cervicothoracic region; Additional info: Trauma TECHNIQUE: Imaging protocol: Multiplanar magnetic resonance images of the cervical spine without and with contrast. Contrast material: PROHANCE; Contrast volume: 17 ml; Contrast route: INTRAVENOUS (IV); COMPARISON: CT cervical spin wo con* [id number] 08/23/2021 10:13 PM FINDINGS: Vertebrae: Normal alignment. No acute fractures. Normal marrow signal. Moderate degenerative changes at C5-C6 and C6-C7. Spinal cord: Normal signal. No cord compression. Soft tissues: Unremarkable. Vertebral arteries: Expected flow voids in the vertebral arteries. MR/MR cervical spine wo/w [id number] IMPRESSION: No acute spinal injury.
[2021-08-23 23:00] VITALS: BP 144/94; PULSE 80; RESP 16; O2SAT 144
[2021-08-23] MEDS: gabapentin 100 mg Capsule 200 MG PO (23:10)
[2021-08-24] VITALS (7 sets, daily range): BP systolic 120–146; BP diastolic 69–114; PULSE 76–86; RESP 20; O2SAT 85–96
[2021-08-24] MEDS: HYDROmorphone 1 mg/mL INJ 1 mL IVP (00:13)
[2021-08-24 01:25] LABS: Urine Appearance Clear (CLEAR); Urine Color Yellow (Yellow); pH Urine 5 (5-7)
[2021-08-24 01:26] LABS: Add Urine Microscopic? YES; Bilirubin Urine Neg (Negative); Blood Urine 2+ (Negative); Glucose Urine UA Norm (Normal); Ketones Urine Negative (Negative); Leukocyte Esterase Urine Negative (Negative); Nitrate Urine Negative (Negative); Protein Urine Neg (Negative); Urobilinogen Urine Norm (Negative)
[2021-08-24 01:28] LABS: Add Urine Culture? No; Bacteria Urine TRACE /hpf; Squamous Epithelial Cell Urine 0-4 /hpf (0-5); WBC Urine 0-4 /hpf (0-5)
[2021-08-24] MEDS: HYDROmorphone 1 mg/mL INJ 1 mL 0.5 MG IVP (02:28)
== END 2021-08-24 03:05 | disposition home or self-care (01) ==
PROVIDERS: Student in an Organized Health Care Education/Training Program; Emergency Provider Emergency Medicine; PCP Nurse Practitioner Family
DX: T14.8XXA Other injury of unspecified body region, initial encounter (principal); S01.21XA Laceration without foreign body of nose, initial encounter; W18.39XA Other fall on same level, initial encounter; Z72.89 Other problems related to lifestyle
CPT/HCPCS: 70450; 70486; 71045; 72125; 72156; 80053; 80307; 81001; 83735; 84484; 85025; 93005; 96374; 96375; 96376; 99284; A9579; J1170; J2930; J3010

== ENCOUNTER → 2022-09-28 16:32 | Outpatient (BNVA) | payer MEDICAID, SELFPAY | PROVIDERS: PCP Nurse Practitioner Family; Visit Provider Internal Medicine Pulmonary Disease | DX: J44.9 Chronic obstructive pulmonary disease, unspecified (principal); R06.02 Shortness of breath | CPT/HCPCS: 82785; 83880; 85025; 86003 ==

== ENCOUNTER 2022-10-12 07:19 | Outpatient (CLI) | payer MEDICAID, SELFPAY ==
--- NOTE | 2022-10-12 07:30 | CT_ITS ---
WS: [id number] CT CHEST TECHNIQUE: Noncontrast CT of the chest with coronal and sagittal reformatted images. CLINICAL INFORMATION: follow up on right lower lobe opacity COMPARISON: Radiograph September 18, 2022 DLP: 248.[address] scans at [facility] use at least one of these dose optimization techniques: automated e xposure control; mA and/or kV adjustment per patient size (includes targeted exams where dose is matc hed to clinical indication); or iterative reconstruction. FINDINGS: Moderate chronic emphysematous changes. Bilateral pleural plaques worse in the mid and lower lobes. C alcified granulomas RIGHT lower lobe. Cystic bronchiectasis with subsegmental atelectasis RIGHT lower lobe. Slight dependent atelectasis LEFT lower lobe. Normal caliber thoracic aorta. Aortic calcification. Coronary calcification. No axillary lymphadenopa thy. Adrenal glands are normal. Small esophageal hiatal hernia. No other suspicious pulmonary parench ymal normalities. CT/CT chest wo con [id number] IMPRESSION: 1. Bilateral pleural plaques worse in the mid and lower lobes bilaterally. 2. Moderate chronic emphysematous changes. 3. Slight subsegmental atelectasis with cystic bronchiectasis RIGHT lower lobe . Slight dependent atelectasis LEFT lower lobe. 4. No mediastinal or hilar lymphadenopathy. 5. No other suspicious findings.
== END 2022-10-12 07:20 | disposition home or self-care (01) ==
PROVIDERS: PCP Nurse Practitioner Family; Visit Provider Internal Medicine Pulmonary Disease
DX: R91.8 Other nonspecific abnormal finding of lung field (principal); J92.9 Pleural plaque without asbestos; J98.11 Atelectasis; J47.9 Bronchiectasis, uncomplicated
CPT/HCPCS: 71250

== ENCOUNTER → 2023-12-21 08:48 | Outpatient (BNVA) | payer MEDICAID, SELFPAY | PROVIDERS: PCP Nurse Practitioner Family; Visit Provider Nurse Practitioner Family | DX: Z79.899 Other long term (current) drug therapy (principal); Z13.6 Encounter for screening for cardiovascular disorders; L40.50 Arthropathic psoriasis, unspecified; J44.9 Chronic obstructive pulmonary disease, unspecified | CPT/HCPCS: 80053; 80061; 81003; 82306; 83036; 84443; 85025; 85651; 86038; 86140; 86200; 86431; G0103 ==

== ENCOUNTER 2024-01-13 07:50 | Outpatient (CLI) | payer MEDICAID, SELFPAY ==
--- NOTE | 2024-01-13 08:00 | MR_ITS ---
WS: [id number] MRI CERVICAL SPINE NONCONTRAST TECHNIQUE: Sagittal T1, T2 and STIR imaging. Axial T2, gradient, and fiesta imaging. CLINICAL INFORMATION: S04.9XXA - Injury of unspecified cranial nerve, initial e... COMPARISON: MRI 2021 FINDINGS: Straightening of the normal cervical lordosis. Small disc protrusions worse at C4-5 C5-C6 and C6-C7. Moderate central canal stenosis C4-5 due to central disc protrusion. Focal myelomalacia in the cervic al cord at this level. Cervical cord signal is otherwise normal. This is new compared to previous. C2-C3: Shallow central disc bulging. Mild facet arthropathy. Spinal canal and foramen are patent. C3-C4: Shallow central disc osteophyte protrusion. Mild central canal stenosis. Moderate LEFT and mil d RIGHT foraminal narrowing. Mild facet arthropathy. C4-C5: Central disc osteophyte protrusion with indentation and slight flattening of the cervical cord . 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 Mild facet arthropathy. Moderate bilateral bony foraminal narrowing. Central canal stenosis is progressed. C5-C6: LEFT paracentral disc osteophyte protrusion with indentation on the LEFT ventral cervical cord . Mild central canal stenosis. Severe LEFT bony foraminal narrowing. Mild RIGHT foraminal narrowing. Mild facet arthropathy. Uncovertebral joint hypertrophy. C6-C7: Disc osteophyte protrusion with indentation and slight flattening of the cervical cord. Mild t o moderate central canal stenosis. Moderate to severe LEFT greater than RIGHT bony foraminal narrowin g. C7-T1: Minimal disc bulging. Moderate LEFT and mild RIGHT bony foraminal narrowing. Moderate LEFT fac et arthropathy. Tiny shallow central protrusions in the upper thoracic spine. Visualized brain stem structures: Normal. Prevertebral soft tissues: Normal. MR/MR cervical spin wo con* [id number] IMPRESSION: 1. Straightening of the normal cervical lordosis. 2. Progressed moderate central canal stenosis C4-5 with central disc osteophyt e protrusion. Indentation with slight flattening of the cervical cord with myel omalacia in the cervical cord at this level. This is new compared to previous. 3. Mild central canal stenosis C3-C4 C5-C6.Mild to moderate central canal sten osis C6-7. 4. Moderate to severe bony foraminal narrowing worse at bilateral C4-5, LEFT C 5-6, bilateral C6-7 worse on the LEFT. Moderate LEFT C7-T1 bony foraminal narro wing.
== END 2024-01-13 07:51 | disposition home or self-care (01) ==
LOC: RAD 07:51
PROVIDERS: PCP Nurse Practitioner Family; Visit Provider Nurse Practitioner Family
DX: M54.12 Radiculopathy, cervical region (principal); M99.61 Osseous and subluxation stenosis of intervertebral foramina of cervical region; M50.021 Cervical disc disorder at C4-C5 level with myelopathy; M47.892 Other spondylosis, cervical region; M50.20 Other cervical disc displacement, unspecified cervical region
CPT/HCPCS: 72141

== ENCOUNTER → 2024-01-18 13:12 | Outpatient (BNVA) | payer MEDICAID, SELFPAY | PROVIDERS: PCP Nurse Practitioner Family; Visit Provider Orthopaedic Surgery | DX: M54.12 Radiculopathy, cervical region (principal) | CPT/HCPCS: 72050 ==

== ENCOUNTER → 2024-03-13 13:43 | Outpatient (BNVA) | payer MEDICAID, SELFPAY | PROVIDERS: PCP Nurse Practitioner Family; Visit Provider Nurse Practitioner Family | DX: B34.9 Viral infection, unspecified (principal) | CPT/HCPCS: 71046 ==

== ENCOUNTER 2024-04-18 14:25 | Outpatient (CLI) | payer MEDICAID, SELFPAY | END 2024-04-18 14:26 | disposition home or self-care (01) | LOC: SLEEP 14:26 | PROVIDERS: PCP Nurse Practitioner Family; Visit Provider Nurse Practitioner Family | DX: G47.33 Obstructive sleep apnea (adult) (pediatric) (principal) | CPT/HCPCS: G0399 ==

== ENCOUNTER → 2024-05-12 11:11 | Outpatient (BNVA) | payer MEDICAID, SELFPAY | PROVIDERS: PCP Nurse Practitioner Family; Visit Provider Nurse Practitioner Family | DX: R32 Unspecified urinary incontinence (principal) | CPT/HCPCS: 81003 ==